=== PATIENT | female | born 1955 | race Caucasian/White ===

== ENCOUNTER 2020-05-25 06:29 | Observation (INO) ==
--- NOTE | 2020-05-19 10:59 | Anesthesiology Consultation ---
Date of Service May 19, 2020 Assessment & Plan (1) Encounter for pre-operative examination: COVID Status: As of 05/12 nurse assessment, patient denies travel to endemic area, known exposure/sick contacts, or symptoms of COVID19. Preoperative COVID19 testing completed on 05/18, results pending. Chart Review Chart Review: Acceptable Risk for Surgery and Patient NOT seen in Pre Admission Testing History Surgery Operation Date: 05/25/20 08:40 Proposed Procedures p Right Breast Lumpectomy with Localization using Keke Bakery Worker Conveyor Line Marker or Needle with Right [place] Lymph Node Biopsy, Possible Right Axillary Dissection - Anthony Mcconnlel MD, FACS Height/Weight Height: 5 ft 7 in Weight: 63.503 kg Allergies Allergy/AdvReac Type Severity Reaction Status Date / Time acetaminophen Allergy Intermediate Hives Verified 05/12/20 13:09 Medications Home Medications Medication Instructions Recorded Confirmed Last Taken buspirone 10 mg tablet 10 mg PO TID PRN #45 tab 04/10/20 05/12/20 Unknown hydroxyzine HCl 25 mg tablet See Rx Instructions PO HS PRN #60 04/10/20 05/12/20 Unknown tab losartan 50 mg tablet 50 mg PO DAILY #90 tab 04/10/20 05/12/20 Unknown sertraline 50 mg tablet See Rx Instructions .ROUTE 04/10/20 05/12/20 Unknown .COMPLEX #30 tab gabapentin 300 mg PO HS 05/12/20 05/12/20 Unknown vitamin B6-vitamin E-magnesium 1 tab PO QAM 05/12/20 05/12/20 Unknown Past Medical History Medical History Abnormal colonoscopy polyp removed Dr Solares Benign age 46 Anxiety Breast cancer Right (CHEMO) History of anemia Hx of peptic ulcer Hypertension Peripheral neuropathy Raynauds disease Past Family History Family History Sister Hypertension Thyroid disorder Father History of pneumonia from pneumonia age 50s aspiration pneumonia Alcoholism Sister Thyroid disorder Mother Sudden , Onset Age: 75 unsure the cause Denies family history of Ovarian cancer Prostate cancer Breast cancer Lung cancer Colorectal cancer Past Surgical History Surgical History H/O oral surgery H/O total hysterectomy History of breast biopsy right History of colonoscopy History of dilatation and curettage History of esophagogastroduodenoscopy (EGD) Nausea and vomiting after administration of anesthetic agent Port-A-Cath in place (11/04/19) Insertion of Mediport Left Internal Jugular Vein Dr. Pastor 11-04-19 Social History Smoking Status: Former smoker tobacco type: cigarettes Do You Dip or Chew Tobacco: No Smoking End Date: 09/2019 Hx Alcohol Use: Yes (quit) Alcohol type: beer alcohol intake frequency: a few times a week Hx Substance Use: No substance use type: does not use Testing Laboratory Results 05/18/20 WBC: 6.28 H/H: 11.5/36.5 PLATELETS: 254 SODIUM: 144 POTASSIUM: 3.4 CHLORIDE: 110 CO2: 28 BUN: 10 CREATININE: 1.02 GLUCOSE: 135 Electrocardiogram Date: 11/04/19 Findings: + NSR @ (71) Nonspecific ST abnormality. Echocardiogram Date: 10/23/19 EF: 65-70% LV Function: normal Valvular Disease: + no significant valvular disease
--- NOTE | 2020-05-25 06:16 | History & Physical Report ---
Date of Service May 25, 2020 Assessment & Plan (1) Breast cancer: Patient with a history of right breast cancer with positive lymph node Status post neoadjuvant chemotherapy She is now for right lumpectomy and sentinel lymph node biopsy with possible axillary dissection She has had marking at the breast center and is for injection in radiology for sentinel lymph node biopsy Operation at [facility] with plan discharge home History of Present Illness Primary Care Provider: Jr Ovalle MD History of right breast cancer with positive axillary lymph node She has undergone neoadjuvant chemotherapy and is now for breast surgery We are planning for breast conserving surgery if possible Allergies Allergy/AdvReac Type Severity Reaction Status Date / Time acetaminophen Allergy Intermediate Hives Verified 05/25/20 06:45 Home Medications Home Medications Medication Instructions Recorded Confirmed Type buspirone 10 mg tablet 10 mg PO TID PRN #45 tab 04/10/20 05/25/20 Rx hydroxyzine HCl 25 mg tablet See Rx Instructions PO HS PRN #60 04/10/20 05/25/20 Rx tab losartan 50 mg tablet 50 mg PO DAILY #90 tab 04/10/20 05/25/20 Rx sertraline 50 mg tablet See Rx Instructions .ROUTE 04/10/20 05/25/20 Rx .COMPLEX #30 tab gabapentin 300 mg PO HS 05/12/20 05/25/20 History vitamin B6-vitamin E-magnesium 1 tab PO QAM 05/12/20 05/25/20 History Past Med/Surg History Medical History Abnormal colonoscopy polyp removed Dr Solares Benign age 46 Anxiety Breast cancer Right (CHEMO) History of anemia Hx of peptic ulcer Hypertension Peripheral neuropathy Raynauds disease Surgical History H/O oral surgery H/O total hysterectomy History of breast biopsy right History of colonoscopy History of dilatation and curettage History of esophagogastroduodenoscopy (EGD) Nausea and vomiting after administration of anesthetic agent Port-A-Cath in place (11/04/19) Insertion of Mediport Left Internal Jugular Vein Dr. Pastor 11-04-19 Family History Sister Hypertension Thyroid disorder Father History of pneumonia from pneumonia age 50s aspiration pneumonia Alcoholism Sister Thyroid disorder Mother Sudden , Onset Age: 75 unsure the cause Denies family history of Ovarian cancer Prostate cancer Breast cancer Lung cancer Colorectal cancer Social History Smoking Status: Former smoker Tobacco Type: Cigarettes Smoking End Date: 09/2019; Second Hand Exposure: Yes (hx); Do You Dip or Chew Tobacco: No; Tobacco Cessation Education Requested by Patient: No Hx Alcohol Use: Yes (quit) Alcohol type: beer Hx Substance Use: No Preferred Language: Telugu Communication Ability: Effective Hearing Ability: Use of Hearing Aid Linesperson Required: No Beliefs That Will Affect Care: None marital status: Current Living Situation: Spouse current occupational status: employed 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 Feels Safe at Home: Yes Safety Concerns: Feels Safe At This Time Childhood Exposure to Second-Hand Smoke: No Seatbelt Use: always Sunscreen Use: Yes Assistive Devices: Glasses and Hearing Aid - Right Assistive Devices Comment: PARTIAL PLATES Review of Systems All systems reviewed & are unremarkable except as noted in HPI & below Physical Exam Constitutional: well developed and well nourished; no acute distress Eyes: + anicteric sclerae Respiratory: normal respiratory effort; no respiratory distress Cardiovascular: Rate/Rhythm: regular rate Gastrointestinal (Abdomen): Percussion/Palpation: abdomen soft Musculoskeletal: Gait: normal gait Skin: no rashes, warm and dry Neurologic: awake Psychiatric: Orientation: alert
[~2020-05-25 06:29] MED LIST: LR 15ML/HR IV SCH; ceFAZolin 2000MG 2,000 MG/15 ML SYR IV SCH
[2020-05-25] MEDS ORDERED: MIDAZOLAM HCL 1 MG/ML 2ML VIAL ONE (07:30)
[2020-05-25] MEDS ORDERED: NEOSTIGMINE METHYLSULFATE 5 MG/5 ML SYR ONE (07:30)
[2020-05-25] MEDS ORDERED: LIDOCAINE HCL 2% 2 ML VIAL/AMP(20MG/ML) INFIL ONE (07:30)
[2020-05-25] MEDS ORDERED: fentaNYL citrate 100 MCG/2 ML VIAL ONE ×2 (07:30→12:11)
[2020-05-25] MEDS ORDERED: ONDANSETRON INJ 2 MG/ML 2 ML VIAL ONE ×2 (07:30→11:55)
[2020-05-25] MEDS ORDERED: DEXAMETHASONE SOD INJ 4 MG/ML VIAL ONE (07:30)
[2020-05-25] MEDS ORDERED: PROPOFOL IV EMULSION 10 MG/ML 20 ML VIAL IV ONE ×2 (07:30→13:10)
[2020-05-25] MEDS ORDERED: ATROPINE SULFATE 0.1 MG/ML 10ML SYR IV PRN (07:59)
[2020-05-25] MEDS ORDERED: ePHEDrine sulfate 50 MG/ML AMP IV PRN (07:59)
[2020-05-25] MEDS ORDERED: ONDANSETRON INJ 2 MG/ML 2 ML VIAL IV PRN ×2 (07:59→14:09)
--- NOTE | 2020-05-25 08:44 | Nuclear Medicine Report ---
LYMPHOSCINTIGRAPHY CLINICAL HISTORY: Right breast cancer. PROCEDURE: Using standard sterile technique, 4 intradermal and one deep injection of 0.5 mCi of Lymph oseek was placed in the right breast. The patient tolerated the procedure well. There were no immedia te complications. The patient was subsequently transported to the surgical suite. No imaging was obta ined at the referring physician's request. IMPRESSION: Injection of 0.5 mCi of Lymphoseek in the right breast. ACT 112: Negative or not required by law. Electronically signed by: Edward Andino M.D. 05/25/2020 8:42 AM
[2020-05-25] MEDS ORDERED: ISOSULFAN BLUE 10 MG/ML VIAL 5 ML ONE (10:12)
[2020-05-25] MEDS ORDERED: BUPIVACAINE 0.5 % 5 MG/1 ML MPF 30ML VIAL ONE (10:13)
[2020-05-25] MEDS ORDERED: METHYLENE BLUE 0.5% 10 ML VIAL ONE (10:31)
[2020-05-25] MEDS ORDERED: ePHEDrine sulfate 50 MG/ML SYR ONE (10:48)
--- NOTE | 2020-05-25 12:14 | Post Operative Brief Note ---
PG Immediate Post Op with CF Date of Surgery May 25, 2020 Pre & Post Diagnosis Operation Date: 05/25/20 09:15 Pre-Op Diagnosis: Infiltrating Ductal Carcinoma Right Breast Post-Op Diagnosis: Infiltrating Ductal Carcinoma Right Breast I identified the patient and participated in the time-out.: Yes Procedure Operation Date: 05/25/20 09:15 Actual Procedures p Right Breast Lumpectomy with Localization using Keke Pantry Chef Marker with Right [place] Lymph Node Biopsy and Right Axillary Dissection(Right) - Anthony Mcconnell MD, FACS Surgeon Anthony Mcconnell MD, FACS Firing Pin Gauger Delta Campos Estimated Blood Loss 20 Findings Consistent with Post-Op Diagnosis Specimens Specimen Description: Frozen #1 Right sentinel lymph node sent out at 1108 Fresh #1 A: Right axillary tissue #2 B:Right breast tissue: long silk lateral, short silk medial, plain superior, methylene posterior/muscle #3 C: additional super tissue- long silk lateral, short silk medial, blue new margin #4 D: additional inferior tissue - long silk lateral, short silk medial, blue new margin Drains Garrison-Talbot Drain (15fr round)
[2020-05-25] MEDS: fentaNYL citrate 100 MCG/2 ML VIAL IV PRN ×2 (12:32→12:37)
--- NOTE | 2020-05-25 13:18 | Operative Report (OR) ---
DATE OF OPERATION: 05/25/2020 NAME OF OPERATION: Right lumpectomy with right sentinel lymph node biopsy and axillary lymph node biopsy. PREOPERATIVE DIAGNOSIS: Right breast cancer with positive lymph node. POSTOPERATIVE DIAGNOSIS: Same. STAFF SURGEON: Anthony Mcconnell MD. LOGISTICS ANALYTICS MANAGER: Corbin Campos PA-C. ANESTHESIA: General. DESCRIPTION OF PROCEDURE: The patient was brought in the operating room and placed on the operating table in supine position. She had undergone injection of the right breast and also SHANTANU Retail Cashier marker placement preoperatively. She did have a large right breast tumor initially with a positive right axillary lymph node, but did have neoadjuvant chemotherapy with good response. At this point, 0.5% plain Marcaine was used to anesthetize all incisions. Incision was made in the right axilla using the SHANTANU Retail Cashier and the Neoprobe. The Neoprobe was used to find the sentinel lymph node, which was sent for frozen section; it was negative. The lymph node which had been biopsied prior and was positive had the SHANTANU Retail Cashier marker within it; it was a separate lymph node. I did take additional axillary tissue which had at least 5-6 lymph nodes within it and it was sent for routine permanent section. During the frozen section, we did perform lumpectomy with a large elliptical incision around the nipple areolar complex because of the patient's tumor was retroareolar and relatively large initially. She did have scar tissue and some scarring of the skin as residual findings. This tissue was taken down to the pectoralis muscle. The initial right breast tissue was marked, long silk lateral, short silk medial, plain suture superior with methylene blue posterior/muscle margin. This was also sent as well as the initial axillary tissue via Faxitron to Dr. Fischer. We did feel additional tissue around this area would be appropriate; therefore, I took additional superior and inferior tissue with it marked long silk lateral, short silk medial, methylene blue new margin. At this point, I did place a Garrison-Talbot drain into the right chest wound and into the axilla and secured using 3-0 nylon suture. Subcutaneous tissue and both incisions closed using 2-0 plain suture and then the skin in the axilla closed using 4-0 nylon suture, in the chest closed using subcuticular 4-0 Monocryl with Steri-Strips. My blacksmith assistant did help with prepping, draping, excision of the breast and axillary tissue and closure of the wounds. I attest to the content of the Intraoperative Record and any orders documented therein. Any exception s are noted below.
--- NOTE | 2020-05-25 13:54 | Anesthesiology Progress Note ---
Date of Service May 25, 2020 Anesthesia Post Procedure Vital Signs Vital Signs: Temp Pulse Pulse Resp BP Pulse Ox 05/25/20 13:00 36.9 C 67 14 144/85 H 100 05/25/20 12:50 69 14 144/85 H 100 05/25/20 12:40 70 14 172/86 H 100 05/25/20 12:30 73 14 172/88 H 99 05/25/20 12:22 36.1 C L 82 18 164/86 H 95 05/25/20 06:55 36.8 C 65 18 169/80 H 98 Pain Intensity Right Breast: Pain Intensity: 4 Transfer of Care Handoff Completed per policy Notes Mental Status: alert / awake / arousable and participated in evaluation Patient Amnestic to Procedure: Yes Nausea / Vomiting: adequately controlled Pain: adequately controlled Airway Patency, RR, SpO2: stable & adequate BP & HR: stable & adequate Hydration State: stable & adequate Anesthetic Complications: no major complications apparent and Pt Satisfied with anesthetic care
[2020-05-25] MEDS ORDERED: PROMETHAZINE HCL 25 MG in SODIUM CHLORIDE 0.9% 50 ML IV PRN (14:09)
[2020-05-25] MEDS ORDERED: HYDROmorphone INJ 0.5 MG/0.5 ML SYR IV PRN (14:09)
[2020-05-25] MEDS ORDERED: hydrOXYzine HCl 25 MG TAB PO PRN (14:09)
[2020-05-25] MEDS ORDERED: PROMETHAZINE HCL 12.5 MG in SODIUM CHLORIDE 0.9% 50 ML IV PRN (14:09)
[2020-05-25] MEDS ORDERED: busPIRone 5 MG TAB PO PRN (14:09)
[2020-05-25] MEDS: SODIUM CHLORIDE 0.9% 1000ML 1,000 ML IV SCH (14:20)
--- NOTE | 2020-05-25 15:15 | Mammography Report ---
MULTIPLE SPECIMENS RIGHT BREAST: 05/25/2020 CLINICAL HISTORY: 65-year-old woman with biopsy proven infiltrative ductal carcinoma and biopsy-prove n metastatic right axillary lymph node diagnosed September 2019. The patient underwent neoadjuvant apt motherapy, preoperative wireless localization with Keke Php Developer, and presents today for definitive surg ical treatment. COMPARISON: Comparison is made to exams dated: 05/14/2020 localization, 05/14/2020 localization, 2019 mammogram, 04/10/2020 ultrasound, 10/02/2019 mammogram, and 10/02/2019 ultrasound biopsy - [facility]. FINDINGS: 2 specimen radiographs were obtained. The first radiograph was performed of the right axil la. It demonstrates the orb-shaped biopsy marker placed after lymph node biopsy, savvy motion picture projectionist apprentice reflect or and at least 4 additional lymph nodes within the tissue specimen. The second specimen radiograph performed of the breast demonstrates the nipple areola complex and a s piculated dense mass with ribbon-shaped biopsy marker and savvy motion picture projectionist apprentice reflector centrally within the tissue. Along the lateral edge of the tissue, 6 o'clock position based on mammography there are grou ped calcifications that extend to the border of the tissue specimen. These could represent DCIS and/ or posttreatment change. This was relayed to the operating surgeon during surgery and additional tis jean paul will be obtained in this location as well. IMPRESSION: SPECIMEN Right breast and axillary tissue specimen, as above. Jazzy Fischer M.D. ay/:05/25/2020 12:02:05 Safety Tech: OR Technologist, [facility]
[2020-05-25] MEDS: oxyCODONE HCL IR 5 MG TAB (IMMEDIATE RELEASE) PO PRN (16:53)
--- NOTE | 2020-05-25 18:13 | Hospitalist Consultation ---
Date of Consultation May 25, 2020 Assessment & Plan (1) Infiltrating ductal carcinoma: s/p lumpectomy 05/25 Monitor for acute blood loss Pain mangement, dvt proph per primary (2) Depression with anxiety: Continue buspirone, sertraline (3) Hypertension: Hypertensive, sbp as high as 190 now trending down. Patient is asymptomatic and reports she did not take her lisinopril this morning. Continue to monitor but will avoid treating for now as pressures are improving somewhat and patient is not having symptoms (4) Peripheral neuropathy: Continue home gabapentin Supervising Physician Co-Signing Physician Notes Patient seen with Radha TSANG. I agree with her exam findings, review of systems, assessment and plan. - Depression and anxiety: mood stable, continue home regimen - HTN: continue lisinopril, low sodium diet History of Present Illness Attending Physician: Anthony Mcconnell MD, [facility] History of Present Illness Ms. Barrientos is feeling well postoperatively. She is having some soreness at the incision site but otherwise has no complaints. Her blood pressure is hypertensive but she denies any visual changes, chest pain or pressure, sob, or headache Allergies Allergy/AdvReac Type Severity Reaction Status Date / Time acetaminophen Allergy Intermediate Hives Verified 05/25/20 06:45 Home Medications Home Medications Medication Instructions Recorded Confirmed Type buspirone 10 mg tablet 10 mg PO TID PRN #45 tab 04/10/20 05/25/20 Rx hydroxyzine HCl 25 mg tablet See Rx Instructions PO HS PRN #60 04/10/20 05/25/20 Rx tab losartan 50 mg tablet 50 mg PO DAILY #90 tab 04/10/20 05/25/20 Rx sertraline 50 mg tablet See Rx Instructions .ROUTE 04/10/20 05/25/20 Rx .COMPLEX #30 tab gabapentin 300 mg PO HS 05/12/20 05/25/20 History vitamin B6-vitamin E-magnesium 1 tab PO QAM 05/12/20 05/25/20 History cephalexin [Keflex] 500 mg PO TID 7 Days #21 cap 05/26/20 Rx oxycodone 5 - 10 mg PO Q6H PRN #30 tab 05/26/20 Rx Patient History Medical History (Updated 05/25/20 @ 18:11 by SHARAN Singh) Abnormal colonoscopy polyp removed Dr Solares Benign age 46 Anxiety Breast cancer Right (CHEMO) History of anemia Hx of peptic ulcer Hypertension Peripheral neuropathy Raynauds disease Surgical History H/O oral surgery H/O total hysterectomy History of breast biopsy right History of colonoscopy History of dilatation and curettage History of esophagogastroduodenoscopy (EGD) Nausea and vomiting after administration of anesthetic agent Port-A-Cath in place (11/04/19) Insertion of Mediport Left Internal Jugular Vein Dr. Pastor 11-04-19 Family History Sister Hypertension Thyroid disorder Father History of pneumonia from pneumonia age 50s aspiration pneumonia Alcoholism Sister Thyroid disorder Mother Sudden , Onset Age: 75 unsure the cause Denies family history of Ovarian cancer Prostate cancer Breast cancer Lung cancer Colorectal cancer Social History Smoking Status: Former smoker Tobacco Type: Cigarettes Smoking End Date: 09/2019; Second Hand Exposure: Yes (hx); Do You Dip or Chew Tobacco: No; Tobacco Cessation Education Requested by Patient: No Hx Alcohol Use: Yes (quit) Alcohol type: beer Hx Substance Use: No Preferred Language: Danish Communication Ability: Effective Hearing Ability: Use of Hearing Aid Filler Shredder Required: No Beliefs That Will Affect Care: None marital status: Current Living Situation: Spouse current occupational status: employed 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 Feels Safe at Home: Yes Safety Concerns: Feels Safe At This Time Childhood Exposure to Second-Hand Smoke: No Seatbelt Use: always Sunscreen Use: Yes Assistive Devices: Glasses Assistive Devices Comment: PARTIAL PLATES Review of Systems Constitutional: no fever, no chills and no body aches Respiratory: no cough and no dyspnea Cardiovascular: no chest pain and no palpitations Gastrointestinal: no abdominal pain, no nausea and no vomiting Genitourinary: no dysuria and no urinary hesitancy Musculoskeletal: no back pain and no joint pain Integumentary: no rash Physical Exam Physical Exam: General: no distress Eyes: normal inspection, PERLL Respiratory: chest non tender, clear to auscultation, normal breath sounds, no respiratory distress, no accessory muscle use Cardiac: regular rate and rhythm, no rub or gallop, no murmur, no edema, no jvd GI/: active bowel sounds, no abd pain or tenderness, soft, non distended Extremities: normal range of motion, normal strength, non tender Neuro/Psych: alert and oriented x 3, normal mood and affect Skin: normal color, dry Results & Data Results & Data ([facility]) Vital Signs (Past 12 Hours) Vital Signs Temp Pulse Pulse Pulse Resp BP Pulse Ox 05/25/20 17:33 74 174/79 H 05/25/20 16:19 36.6 C 77 18 181/77 H 97 05/25/20 15:18 36.5 C 63 16 191/91 H 99 05/25/20 14:14 58 L 15 174/84 H 98 05/25/20 13:48 60 15 167/83 H 98 05/25/20 13:21 36.8 C 70 16 147/74 H 97 05/25/20 13:00 36.9 C 67 14 144/85 H 100 05/25/20 12:50 69 14 144/85 H 100 05/25/20 12:40 70 14 172/86 H 100 05/25/20 12:30 73 14 172/88 H 99 05/25/20 12:22 36.1 C L 82 18 164/86 H 95 05/25/20 06:55 36.8 C 65 18 169/80 H 98 PG Care Time/CCT Total # of Minutes Spent Total Time Spent with Patient: Total time spent is greater than 50% in coordination of care (as documented) at patient's floor/unit and/or counseling patient: Coding Level of Care Code 21021 Inpt Consult Level 4 Diagnoses Infiltrating ductal carcinoma C50.919 Depression with anxiety F41.8 Hypertension I10 Peripheral neuropathy G62.9
[2020-05-25] MEDS: ceFAZolin 1000MG 1,000 MG/7.5 ML SYR IV SCH (19:10)
[2020-05-25] MEDS ORDERED: GABAPENTIN 300 MG CAP PO SCH (21:00)
[2020-05-26] MEDS: ceFAZolin 1000MG 1,000 MG/7.5 ML SYR IV SCH ×2 (03:08→10:00)
[2020-05-26] MEDS: SODIUM CHLORIDE 0.9% 1000ML 1,000 ML IV SCH (07:40)
[2020-05-26] MEDS: oxyCODONE HCL IR 5 MG TAB (IMMEDIATE RELEASE) PO PRN ×2 (07:41→11:00)
--- NOTE | 2020-05-26 08:53 | Discharge Summary (DS) ---
DATE OF DISCHARGE: 05/26/2020 PRINCIPAL DIAGNOSIS: Right breast cancer. PROCEDURES: The patient underwent a right lumpectomy with sentinel lymph node biopsy and axillary dissection. HISTORY OF PRESENT ILLNESS: The patient is a 65-year-old female with biopsy-diagnosed breast cancer of the right breast who underwent neoadjuvant chemotherapy, now for definitive surgery. HOSPITAL COURSE: The patient was brought into the hospital on 05/25/2020 where she underwent right lumpectomy with right sentinel lymph node biopsy and axillary dissection. It was a relatively extensive operation with drain placement. She has done well overnight, felt stable for discharge today to be followed in the surgical clinic within 1 week.
[2020-05-26] MEDS ORDERED: LOSARTAN POTASSIUM 50 MG TAB PO SCH (09:00)
[2020-05-26 09:11] LABS: Hematocrit (blood only) 35.1 % (37-47); Hemoglobin 11.1 g/dL (12.0-16.0); Mean Corpuscular Hemoglobin 28.7 pg (25-34); Mean Corpuscular Hgb Conc 31.6 g/dL (32-36); Mean Corpuscular Volume 90.7 fL (80-100); Mean Platelet Volume 10.2 fL (7.4-10.4); Platelet Count 274 K/uL (130-400); RDW Coefficient of Variation 13.7 % (11.5-14.5); RDW Standard Deviation 45.6 fL (36.4-46.3); Red Blood Count 3.87 M/uL (4.2-5.4); White Blood Count 8.89 K/uL (4.8-10.8)
[2020-05-26 09:12] LABS: BUN Creatinine Ratio 10.6 (10-20); Calcium 9.6 mg/dl (8.5-10.1); Creatinine Clr Calc Pharmacy 54.7 ml/min; Est GFR (African American) 68.1; Est GFR (Non-African American) 58.8; Potassium 4.1 mmol/L (3.5-5.1)
== END 2020-05-26 11:03 | disposition home or self-care (01) ==
LOC: 3E 06:29 → ASU 06:29

== ENCOUNTER 2022-12-26 13:04 | Inpatient (IN) ==
[2022-12-26] MEDS ORDERED: SODIUM CHLORIDE 0.9% 1000ML 1,000 ML IV ONE ×2 (13:34→14:02)
[2022-12-26] MEDS ORDERED: fentaNYL citrate PF 100 MCG/2 ML VIAL IV ONE (13:34)
[2022-12-26] MEDS ORDERED: ONDANSETRON INJ 2 MG/ML 2 ML VIAL IV STA (13:34)
--- NOTE | 2022-12-26 13:37 | Emergency Department Note ---
Impression & Plan Neutropenia, Abdominal pain, Hypotensive episode, MARISA (acute kidney injury), Acute dehydration, Abnormal LFTs ED Provider Note NAME: GARIMA MCCONNELL AGE: 67 SEX: F : 1955 ARRIVES VIA: Walk-In INFORMANT: Patient, the patient's family members ED PROVIDER(S): Ramy Pop DO CHIEF COMPLAINT: Altered mental status HPI: The patient is a 67-year-old female who presented to the emergency department for an evaluation of altered mental status and generalized weakness. The patient is a history of metastatic breast cancer which is spread to her liver. She had a paracentesis recently. The patient has had no vomiting but she had severe decreased p.o. intake according to the family. She has no fever but she is been noted to have low blood pressure and was sent from the primary care physician's office to the emergency department for further evaluation. The patient himself does state that she notices abdominal distention as well as pain. She denies having any recent trauma. She does note some swelling in her legs which is also new for her. The patient denies having any hemoptysis. The patient otherwise has been compliant with her outpatient medications. ROS: See above HPI for pertinent positives & negatives. A total of 10 systems reviewed and were otherwise negative. PAST MEDICAL HISTORY: See Below PAST SURGICAL HISTORY: See Below FAMILY HISTORY: See Below SOCIAL HISTORY: See Below HOME MEDICATIONS: See Below ALLERGIES: See Below VITALS: See Below PHYSICAL EXAMINATION: GENERAL: The patient is awake and frail-appearing. She does respond to verbal commands appropriately. EYES: The conjunctivae are clear. The pupils are round and reactive. EARS, NOSE, MOUTH AND THROAT: The nose is without any evidence of any deformity. Mucous membranes are dry. NECK: The neck is nontender and supple. RESPIRATORY: Diminished breath sounds are noted throughout. CARDIOVASCULAR: Regular rate and rhythm noted there no murmurs rubs or gallops normal S1 normal S2. GASTROINTESTINAL: The abdomen is distended and diffusely tender. There is no specific guarding or rigidity. MUSCULOSKELETAL/EXTREMITIES: There is no evidence of gross deformity full range of motion is noted in the hips and shoulders. SKIN: Skin was cool and dry. There was pedal edema bilaterally. NEUROLOGIC: Patient is awake and oriented to person place and situation. Strength was symmetric but diminished. She does recognize her family members. MEDICAL DECISION MAKING: The patient is a 67-year-old female who presented to the emergency department for an evaluation of weakness. The patient has a history of metastatic breast cancer with metastatic disease to the liver. She has been feeling very ill lately. She has been having decreased p.o. intake. Her family took her to the doctor today and she was found to be hypotensive. She was sent immediately to the emergency department for possible sepsis. The patient was found to have abdominal distention and abdominal pain. She has a history of ascites from the metastatic disease. The patient was treated with IV fluids as well as IV antibiotics to cover for sepsis. She was reevaluated multiple times. She was much more awake. I discussed the patient's condition with her. She was found to have some signs of possible small bowel obstruction on CT of the abdomen and pelvis. She has not been vomiting but she certainly does have abdominal tenderness. I discussed her condition with the on-call [facility]. They have agreed to evaluate the patient in the emergency department for further management and disposition. She was given IV fluids to cover for possible sepsis as well. She did have an elevation in her lactic acid. Triage Nursing notes reviewed. Prior medical records reviewed Vital Signs: reviewed and remarkable for hypotension. Differential diagnosis: Infection, hypoglycemia, electrolyte abnormalities, overdose, toxicologic, cardiac sources, intracerebral event, neurologic, trauma, as well as other pathologies. ER treatment provided: See below Diagnostics interpreted by me: ECG: EKG was obtained in the emergency department. My interpretation is sinus tachycardia at 111 bpm. There was no ectopy. Low voltage was noted throughout. This was compared to a tracing from December 08, 2022. No changes were noted. Cardiac Monitoring: An order was placed for continuous cardiac monitoring. The monitor shows a rate of 112 bpm with sinus tachycardia. Laboratory studies: As stated above and show below. Imaging studies: See below. Radiographic imaging was reviewed by myself Consultation(s): I discussed this case with Dr. Reagan who is on-call for the [facility] group. They will evaluate the patient in the emergency department. ED COURSE: Procedures: none Critical Care: I have personally spent greater than 40 minutes of critical care time in the direct management of this patient. This includes bedside care, interpretation of diagnostic studies, and testing, discussion with consultants, patient, and family members, and other required patient management activities. This 40 minutes is in excess of all separately billable procedures. Past Med/Surg History Medical History Breast cancer CKD (chronic kidney disease) Depression with anxiety Diverticular disease History of anemia Hx of colonic polyp Polyp removed Dr. Beck Cespedes age 46 Hx of peptic ulcer Hypertension Infiltrating ductal carcinoma of right breast Peripheral neuropathy Raynauds disease Surgical History H/O lumpectomy Right lumpectomy with right SNL biopsy and axillary lymph node biopsy Per pt no limb restrictions H/O oral surgery root canals H/O total hysterectomy History of abdominal surgery 04/2021 @ [facility] for bowel reconstruction with ostomy placement History of breast biopsy right History of colonoscopy History of dilatation and curettage History of esophagogastroduodenoscopy (EGD) History of removal of Port-a-Cath (03/26/21) Access Port Removal Dr. Pastor 03-26-2021 History of reversal of ileostomy 05/2021 @ [facility] Nausea and vomiting after administration of anesthetic agent Port-A-Cath in place (11/04/19) Insertion of Mediport Left Internal Jugular Vein Dr. Pastor 11-04-19 Family History Sister Hypertension Thyroid disorder Father Alcoholism History of pneumonia from pneumonia age 50s aspiration pneumonia Sister Thyroid disorder Mother Sudden , Onset Age: 75 unsure the cause Other No family history of adverse response to anesthesia Denies family history of Ovarian cancer Prostate cancer Breast cancer Lung cancer Colorectal cancer Social History Smoking Status: Never smoker Tobacco Type: Cigarettes Second Hand Exposure: No; Do You Dip or Chew Tobacco: No; Hx Alcohol Use: No Hx Substance Use: No Preferred Language: Swedish Communication Ability: Effective Visual Impairment: No Limitations Hearing Ability: Use of Hearing Aid Professor Of Management Required: No Beliefs That Will Affect Care: None marital status: Current Living Situation: Spouse current occupational status: employed 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 Feels Safe at Home: Yes Childhood Exposure to Second-Hand Smoke: No Diet: regular Seatbelt Use: always Sunscreen Use: Yes Assistive Devices: Glasses, Hearing Aid - Bilateral and Other Allergies Allergies Allergy/AdvReac Type Severity Reaction Status Date / Time acetaminophen Allergy Intermediate Hives Verified 12/26/22 12:09 sertraline Allergy Intermediate groggy Verified 12/26/22 12:09 Home Meds Home Medications Medication Instructions Recorded Confirmed multivitamin 1 tab PO QAM 12/27/21 12/26/22 furosemide 20 mg tablet (Lasix) 20 mg PO QAM 12/09/22 12/26/22 tramadol 50 mg tablet 50 mg PO BID PRN 12/26/22 12/26/22 zolpidem 5 mg tablet (Ambien) 5 mg PO 12/26/22 12/26/22 Previous Rx's Medication Instructions Recorded lorazepam 0.5 mg tablet (Ativan) 0.5 mg PO DAILY PRN anxiety before 12/27/21 doctors appointments #20 tabs olanzapine 2.5 mg tablet See Rx Instructions PO .COMPLEX 12/09/22 #30 tabs ondansetron HCl 8 mg tablet 8 mg PO Q8H PRN nausea and 12/09/22 vomiting #90 tabs prochlorperazine maleate 10 mg 10 mg PO QID PRN nausea and 12/09/22 tablet vomiting #90 tabs losartan 50 mg tablet 50 mg PO HS #90 tabs 12/23/22 Results & Data (ED) Vital Signs Vital Signs - 24 hr 12/26/22 13:04 12/26/22 13:42 12/26/22 13:46 Temperature 35.6 C L Temperature Source Temporal Artery Scan Pulse Rate 111 H 107 H Pulse Rate from SpO2 Sensor Respiratory Rate 18 Blood Pressure 79/52 L Blood Pressure Mean 61 Pulse Oximetry 99 Oxygen Delivery Method Room Air Sepsis Recent Fever Within 48 Hours No Sepsis New/Unexplained Change in Mental Status N/A Sepsis Action Taken by Nursing Physician Notified 12/26/22 13:47 12/26/22 13:49 12/26/22 13:45 Temperature 36.5 C Temperature Source Oral Pulse Rate 106 H Pulse Rate from SpO2 Sensor Respiratory Rate 23 Blood Pressure Blood Pressure Mean Pulse Oximetry 100 Oxygen Delivery Method Room Air Sepsis Recent Fever Within 48 Hours Sepsis New/Unexplained Change in Mental Status Sepsis Action Taken by Nursing 12/26/22 13:48 12/26/22 13:48 12/26/22 14:04 Temperature Temperature Source Pulse Rate 105 H 105 H Pulse Rate from SpO2 Sensor Respiratory Rate 21 30 H Blood Pressure 100/46 L Blood Pressure Mean 64 Pulse Oximetry Oxygen Delivery Method Sepsis Recent Fever Within 48 Hours Sepsis New/Unexplained Change in Mental Status Sepsis Action Taken by Nursing 12/26/22 14:05 12/26/22 14:05 12/26/22 14:15 Temperature Temperature Source Pulse Rate 107 H Pulse Rate from SpO2 Sensor 107 H Respiratory Rate 21 Blood Pressure 116/60 119/74 Blood Pressure Mean 78 89 Pulse Oximetry 100 Oxygen Delivery Method Room Air Sepsis Recent Fever Within 48 Hours Sepsis New/Unexplained Change in Mental Status Sepsis Action Taken by Nursing 12/26/22 14:15 12/26/22 14:30 12/26/22 14:30 Temperature Temperature Source Pulse Rate 107 H 107 H Pulse Rate from SpO2 Sensor 108 H 108 H Respiratory Rate 25 H 24 Blood Pressure 124/69 Blood Pressure Mean 87 Pulse Oximetry 100 100 Oxygen Delivery Method Room Air Room Air Sepsis Recent Fever Within 48 Hours Sepsis New/Unexplained Change in Mental Status Sepsis Action Taken by Nursing 12/26/22 14:45 12/26/22 14:45 12/26/22 15:00 Temperature Temperature Source Pulse Rate 109 H Pulse Rate from SpO2 Sensor 110 H Respiratory Rate 24 Blood Pressure 121/69 101/57 L Blood Pressure Mean 86 71 Pulse Oximetry 100 Oxygen Delivery Method Room Air Sepsis Recent Fever Within 48 Hours Sepsis New/Unexplained Change in Mental Status Sepsis Action Taken by Nursing 12/26/22 15:00 12/26/22 15:15 12/26/22 15:15 Temperature Temperature Source Pulse Rate 108 H 112 H Pulse Rate from SpO2 Sensor 110 H 111 H Respiratory Rate 18 22 Blood Pressure 96/51 L Blood Pressure Mean 66 Pulse Oximetry 100 100 Oxygen Delivery Method Room Air Room Air Sepsis Recent Fever Within 48 Hours Sepsis New/Unexplained Change in Mental Status Sepsis Action Taken by Nursing 12/26/22 15:37 12/26/22 15:45 Temperature Temperature Source Pulse Rate 112 H Pulse Rate from SpO2 Sensor 112 H 112 H Respiratory Rate 18 Blood Pressure Blood Pressure Mean Pulse Oximetry 100 100 Oxygen Delivery Method Room Air Room Air Sepsis Recent Fever Within 48 Hours Sepsis New/Unexplained Change in Mental Status Sepsis Action Taken by [facility] Medications Current Medication List: was personally reviewed by me Laboratory Data Attestation: I reviewed the patient's lab results. 12/26/22 13:39 12/26/22 13:39 Lab Results 05/12/26/22 12/26/22 Range/Units 13:39 13:39 13:39 WBC 0.90 L* (4.8-10.8) K/ul RBC 3.92 L (4.20-5.40) M/uL Hgb 11.7 L (12.0-16.0) g/dl Hct 32.0 L (37.0-47.0) % MCV 81.6 (80.0-100.0) fL MCH 29.8 (25.0-34.0) pg MCHC 36.6 H (32.0-36.0) g/dL RDW Std Deviation 50.8 H (36.4-46.3) fL RDW Coeff of Moon 22.7 H (11.5-14.5) % Plt Count 240 (130-400) K/uL MPV 10.8 (9.4-12.4) fL Immature Gran % (Auto) 1.1 % Neut % (Auto) 22.2 % Lymph % (Auto) 68.9 % Pershing % (Auto) 5.6 % Eos % (Auto) 1.1 % Baso % (Auto) 1.1 % Neut # (Auto) 0.20 L* (1.40-6.50) K/uL Lymph # (Auto) 0.62 L (1.2-3.4) K/uL Pershing # (Auto) 0.05 L (0.11-0.59) K/uL Eos # (Auto) 0.01 (0-0.50) K/uL Baso # (Auto) 0.01 (0-0.2) K/uL Immature Gran # (Auto) 0.01 (0.01-0.20) K/uL PT 12.6 H (9.0-12.0) Seconds INR 1.2 H (0.9-1.1) APTT 30.1 (21.0-31.0) Seconds PTT Ratio 1.1 VBG pH (7.36-7.41) VBG pCO2 (38-50) mmHg VBG pO2 mmHg VBG HCO3 mmol/L VBG O2 Saturation % VBG Base Excess mEq/L Sodium 133 L (136-145) mmol/L Potassium 4.9 (3.5-5.1) mmol/L Chloride 101 (98-107) mmol/L Carbon Dioxide 17 L (21-32) mmol/L Anion Gap 15 H (3-11) BUN 73 H (6-23) mg/dl Creatinine 3.01 H (0.6-1.2) mg/dl Est Cr Clr Drug Dosing 17.9 ml/min Est GFR ( Amer) 17.9 ml/min Est GFR (Non-Af Amer) 15.5 ml/min BUN/Creatinine Ratio 24.3 H (10-20) Glucose 99 (70-99(Fasting)) mg/dl Lactate (0.4-2.0) mmol/L Calcium 8.6 (8.6-10.3) mg/dl Magnesium 2.4 (1.7-2.4) mg/dl Total Bilirubin 5.3 H (0.2-1.0) mg/dl Direct Bilirubin 2.9 H (0-0.2) mg/dl AST 372 H (13-39) U/L ALT 83 H (7-52) U/L Alkaline Phosphatase 615 H (34-104) U/L Troponin I High Sens 22.8 H (0-14) pg/ml C-Reactive Protein 27.18 H (0-0.5) mg/dl Total Protein 5.9 L (6.0-8.3) gm/dl Albumin 2.4 L (3.4-5.0) gm/dl Procalcitonin (0-0.5) ng/ml SARS-CoV-2 (PCR) (Negative) Influenza Type A (PCR) (Neg) Influenza Type B (PCR) (Neg) RSV (RT-PCR) (Neg) 12/26/22 12/26/22 12/26/22 Range/Units 13:39 13:39 13:39 WBC (4.8-10.8) K/ul RBC (4.20-5.40) M/uL Hgb (12.0-16.0) g/dl Hct (37.0-47.0) % MCV (80.0-100.0) fL MCH (25.0-34.0) pg MCHC (32.0-36.0) g/dL RDW Std Deviation (36.4-46.3) fL RDW Coeff of Moon (11.5-14.5) % Plt Count (130-400) K/uL MPV (9.4-12.4) fL Immature Gran % (Auto) % Neut % (Auto) % Lymph % (Auto) % Pershing % (Auto) % Eos % (Auto) % Baso % (Auto) % Neut # (Auto) (1.40-6.50) K/uL Lymph # (Auto) (1.2-3.4) K/uL Pershing # (Auto) (0.11-0.59) K/uL Eos # (Auto) (0-0.50) K/uL Baso # (Auto) (0-0.2) K/uL Immature Gran # (Auto) (0.01-0.20) K/uL PT (9.0-12.0) Seconds INR (0.9-1.1) APTT (21.0-31.0) Seconds PTT Ratio VBG pH 7.35 L (7.36-7.41) VBG pCO2 28 L (38-50) mmHg VBG pO2 32 mmHg VBG HCO3 16 mmol/L VBG O2 Saturation < 60.0 % VBG Base Excess -8.6 mEq/L Sodium (136-145) mmol/L Potassium (3.5-5.1) mmol/L Chloride (98-107) mmol/L Carbon Dioxide (21-32) mmol/L Anion Gap (3-11) BUN (6-23) mg/dl Creatinine (0.6-1.2) mg/dl Est Cr Clr Drug Dosing ml/min Est GFR ( Amer) ml/min Est GFR (Non-Af Amer) ml/min BUN/Creatinine Ratio (10-20) Glucose (70-99(Fasting)) mg/dl Lactate 4.8 H* (0.4-2.0) mmol/L Calcium (8.6-10.3) mg/dl Magnesium (1.7-2.4) mg/dl Total Bilirubin (0.2-1.0) mg/dl Direct Bilirubin (0-0.2) mg/dl AST (13-39) U/L ALT (7-52) U/L Alkaline Phosphatase (34-104) U/L Troponin I High Sens (0-14) pg/ml C-Reactive Protein (0-0.5) mg/dl Total Protein (6.0-8.3) gm/dl Albumin (3.4-5.0) gm/dl Procalcitonin 12.34 H (0-0.5) ng/ml SARS-CoV-2 (PCR) (Negative) Influenza Type A (PCR) (Neg) Influenza Type B (PCR) (Neg) RSV (RT-PCR) (Neg) 12/26/22 Range/Units 14:17 WBC (4.8-10.8) K/ul RBC (4.20-5.40) M/uL Hgb (12.0-16.0) g/dl Hct (37.0-47.0) % MCV (80.0-100.0) fL MCH (25.0-34.0) pg MCHC (32.0-36.0) g/dL RDW Std Deviation (36.4-46.3) fL RDW Coeff of Moon (11.5-14.5) % Plt Count (130-400) K/uL MPV (9.4-12.4) fL Immature Gran % (Auto) % Neut % (Auto) % Lymph % (Auto) % Pershing % (Auto) % Eos % (Auto) % Baso % (Auto) % Neut # (Auto) (1.40-6.50) K/uL Lymph # (Auto) (1.2-3.4) K/uL Pershing # (Auto) (0.11-0.59) K/uL Eos # (Auto) (0-0.50) K/uL Baso # (Auto) (0-0.2) K/uL Immature Gran # (Auto) (0.01-0.20) K/uL PT (9.0-12.0) Seconds INR (0.9-1.1) APTT (21.0-31.0) Seconds PTT Ratio VBG pH (7.36-7.41) VBG pCO2 (38-50) mmHg VBG pO2 mmHg VBG HCO3 mmol/L VBG O2 Saturation % VBG Base Excess mEq/L Sodium (136-145) mmol/L Potassium (3.5-5.1) mmol/L Chloride (98-107) mmol/L Carbon Dioxide (21-32) mmol/L Anion Gap (3-11) BUN (6-23) mg/dl Creatinine (0.6-1.2) mg/dl Est Cr Clr Drug Dosing ml/min Est GFR ( Amer) ml/min Est GFR (Non-Af Amer) ml/min BUN/Creatinine Ratio (10-20) Glucose (70-99(Fasting)) mg/dl Lactate (0.4-2.0) mmol/L Calcium (8.6-10.3) mg/dl Magnesium (1.7-2.4) mg/dl Total Bilirubin (0.2-1.0) mg/dl Direct Bilirubin (0-0.2) mg/dl AST (13-39) U/L ALT (7-52) U/L Alkaline Phosphatase (34-104) U/L Troponin I High Sens (0-14) pg/ml C-Reactive Protein (0-0.5) mg/dl Total Protein (6.0-8.3) gm/dl Albumin (3.4-5.0) gm/dl Procalcitonin (0-0.5) ng/ml SARS-CoV-2 (PCR) NEGATIVE (Negative) Influenza Type A (PCR) Negative (Neg) Influenza Type B (PCR) Negative (Neg) RSV (RT-PCR) Negative (Neg) Administered Medications Discontinued Medications Fentanyl Citrate (Fentanyl Citrate Pf 100 Mcg/2 Ml Vial) 25 mcg IV NOW ONE Stop: 12/26/22 13:35 Last Admin: 12/26/22 13:43 Dose: 25 mcg Documented By: GABE Sodium Chloride (Nss 1000ml) 1,000 mls @ 999 mls/hr IV .Q1H1M ONE Stop: 12/26/22 14:34 Last Infusion: 12/26/22 14:43 Dose: 0 mls/hr Documented By: Admin: 12/26/22 13:42 Dose: 999 mls/hr Documented By: GABE Sodium Chloride (Nss 1000ml) 1,000 mls @ 999 mls/hr IV .Q1H1M ONE Stop: 12/26/22 15:02 Last Infusion: 12/26/22 15:10 Dose: 0 mls/hr Documented By: Admin: 12/26/22 14:11 Dose: 999 mls/hr Documented By: GABE Cefepime HCl (Maxipime) 2,000 mg in 20 mls @ 5 mls/min IV NOW STA; Protocol Stop: 12/26/22 14:39 Last Admin: 12/26/22 14:44 Dose: 5 mls/min Documented By: GABE Sodium Chloride (Nss) 500 mls @ 999 mls/hr IV .Q31M ONE Stop: 12/26/22 15:53 Last Admin: 12/26/22 15:45 Dose: 999 mls/hr Documented By: GABE Morphine Sulfate (Morphine Sulfate 4 Mg/Ml 1 Ml Carp\Vial) 4 mg IV NOW STA Stop: 12/26/22 14:37 Last Admin: 12/26/22 14:43 Dose: 4 mg Documented By: GABE Ondansetron HCl (Ondansetron Inj 2 Mg/Ml 2 Ml Vial) 4 mg IV NOW STA Stop: 12/26/22 13:35 Last Admin: 12/26/22 13:43 Dose: 4 mg Documented By: GABE Imaging Data Attestation: I personally reviewed and interpreted this imaging study as follows: My Impression: 1 view chest x-ray was obtained in the emergency department. My interpretation is no free air, no definite infiltrate, final report below. Radiologist's Impression: Chest X-Ray 12/26/22 13:35 SINGLE VIEW CHEST CLINICAL HISTORY: Sepsis FINDINGS: An AP, portable, semierect chest radiograph is compared to study dated 11/04/2019 and correlated with chest CT dated 04/27/2020. The examination is degr aded by portable technique and apical lordotic positioning. The cardiomediastinal silhouette is unremarkable. Chronic interstitial thickening is similar to previous. There is mild elevation of the right hemidiaphragm and bibasilar atelectasis. No airspace consolidation or large pleural effusion is i dentified. No pneumothorax is seen. The skeletal structures are osteopenic. The bony thorax is grossly intact. IMPRESSION: No active disease in the chest. ACT 112: Negative or not required by law. Electronically signed by: Moi Cronin M.D. 12/26/2022 2:14 PM Abdomen/Pelvis CT 12/26/22 13:37 CT SCAN OF THE ABDOMEN AND PELVIS WITHOUT IV CONTRAST CLINICAL HISTORY: Generalized abdominal pain. History of metastatic disease. COMPARISON STUDY: Abdominal CT dated 01/29/2021. PET CT dated 12/07/2022. TECHNIQUE: CT scan of the abdomen and pelvis is performed from the lung bases to the proximal femora. Images are reviewed in the axial, sagittal, and coronal planes. IV contrast was not administered for this examination. Note that the examination was performed in suboptimal fashion without oral and IV contrast. There is also streak artifact from the arms which could not be elevated above the abdomen. A dose lowering technique was utilized adhering to the principles of ALARA. FINDINGS: Lung bases: The heart is mildly enlarged noting trace pericardial effusion. The coronary arteries are densely calcified. The lung bases are clear noting bibasilar scarring/atelectasis. There is a moderate hiatal hernia which also contains ascitic fluid. Liver: The unenhanced liver is enlarged an heterogeneous, measuring 22.5 cm in length. The liver is infiltrated by diffuse/multifocal metastatic disease. This is similar to before 2623 examination. There is no intrahepatic biliary ductal dilatation. Gallbladder: Unremarkable. Spleen: Normal in size and attenuation. There are calcified splenic granulomas. Pancreas: The unenhanced pancreas is grossly unremarkable. Adrenal glands: Unremarkable. Kidneys: The unenhanced kidneys demonstrate mild cortical atrophy and are without hydronephrosis. There are no renal calculi identified. There is no evidence of contour deforming renal mass lesion. Abdominal vasculature: The abdominal aorta is normal in course and caliber noting advanced atherosclerotic calcification. Bowel: There is postoperative change from sigmoid colon resection with colocolonic anastomosis. A small bowel anastomosis is seen in the right lower quadrant. There are distended and fecalized loops of small bowel above anastomosis which are mildly thick walled and measure up to 2.8 cm diameter (axial image #322). The small bowel below the anastomosis is decompressed, and a partial obstruction is not excluded. There is mild colonic diverticulosis wi thout CT evidence of acute diverticulitis. Mild wall thickening suggested throughout the colon. The appendix is well-visualized and normal. Peritoneum: There is a moderate volume of abdominopelvic ascites. No intraperitoneal free air is seen. Lymphadenopathy: None. Pelvic viscera: The bladder is decompressed and grossly unremarkable. The uterus is surgically absent. No adnexal lesion is seen. Skeletal structures: The skeletal structures are heterogeneously osteopenic. 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 Represent a lesions are seen in the body of T11 on image #103, the body of L5 on image #259, and the left iliac wing on image #259, and in the medial right ilium on image #277. IMPRESSION: 1. There are distended and thick-walled loops of fecalized small bowel in the pelvis. An apparent transition point is seen at a small bowel anastomosis in the right midabdomen, and the distal small bowel is decompressed. Differential considerations include a nonspecific enteritis and/or a partial small bowel obstruction. A small bowel obstruction is favored and clinical correlation will be essential. 2. The liver is enlarged and infiltrated by diffuse hepatic metastatic disease. This is similar in appearance date 12/07/2022 PET examination. 3. 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 4. Moderate volume of abdominopelvic ascites. This has increased from previous. 5. There is mild wall thickening and edema suggested throughout the colon. This could be due to hepatic dysfunction/fluid overload. Correlate clinically for evidence of a nonspecific colitis. 6. Additional findings as above. ACT 112: Negative or not required by law. Electronically signed by: Moi Cronin M.D. 12/26/2022 2:[address] 12/26/22 13:37 CT SCAN OF THE BRAIN WITHOUT IV CONTRAST CLINICAL HISTORY: Headache. Weakness. COMPARISON STUDY: No priors. TECHNIQUE: Unenhanced axial CT scan of the brain is performed from the vertex to the skull base. A dose lowering technique was utilized adhering to the principles of ALARA. CT DOSE: 1576.03 mGy.cm FINDINGS: Brain parenchyma: There is age-related involutional change noting mild subcortical and periventricular microangiopathic disease. There is no hemorrhage, mass effect, or evidence of acute territorial ischemia by CT criteria. Ahn-white matter differentiation is preserved. No extra-axial fluid collection is seen. Ventricles, sulci, cisterns: Prominent secondary to involutional change. Intracranial vasculature: There is atherosclerotic calcification of the cavernous carotid arteries. Calvarium: Unremarkable. Sinuses and mastoids: The visualized paranasal sinuses are clear. The mastoid air cells are well pneumatized. Orbits: The bony orbits are grossly intact. IMPRESSION: There is no hemorrhage, mass effect, or evidence of acute territorial ischemia by CT criteria. ACT 112: Negative or not required by law. Electronically signed by: Moi Cronin M.D. 12/26/2022 2:10 PM Discharge Plan Visit Data Chief Complaint: Illness Stated Complaint: NOT EATING OR DRINKING ED Provider: Ramy Pop Discharge Problem: Neutropenia, Abdominal pain, Hypotensive episode, MARISA (acute kidney injury), Acute dehydration, Abnormal LFTs Patient Disposition: Being Evaluated by Hospitalist Forms Stand Alone Forms: My [facility] Prescriptions Prescriptions: No Action losartan 50 mg tablet 50 mg PO HS Qty: 90 0RF zolpidem [Ambien] 5 mg tablet 5 mg PO tramadol 50 mg tablet 50 mg PO BID PRN ondansetron HCl 8 mg tablet 8 mg PO Q8H PRN (Reason: nausea and vomiting) Qty: 90 0RF olanzapine 2.5 mg tablet See Rx Instructions PO .COMPLEX Qty: 30 2RF Rx Instructions: 2.5mg daily x 4 days at beginning of chemo orally; prochlorperazine maleate 10 mg tablet 10 mg PO QID PRN (Reason: nausea and vomiting) Qty: 90 0RF furosemide [Lasix] 20 mg tablet 20 mg PO QAM multivitamin Tablet 1 tab PO QAM lorazepam [Ativan] 0.5 mg tablet 0.5 mg PO DAILY PRN (Reason: anxiety before doctors appointments) Qty: 20 2RF Referrals Referrals: Jr Ovalle MD [Primary Care Provider] -
[2022-12-26 13:55] LABS: Base Excess VBG -8.6 mEq/L; HCO3 VBG 16 mmol/L; Oxygen Saturation VBG < 60.0 %; PCO2 VBG 28 mmHg (38-50); PO2 VBG 32 mmHg; pH VBG 7.35 (7.36-7.41)
--- NOTE | 2022-12-26 14:11 | CT Scan Report ---
CT SCAN OF THE BRAIN WITHOUT IV CONTRAST CLINICAL HISTORY: Headache. Weakness. COMPARISON STUDY: No priors. TECHNIQUE: Unenhanced axial CT scan of the brain is performed from the vertex to the skull base. A do se lowering technique was utilized adhering to the principles of ALARA. CT DOSE: 1576.03 mGy.cm FINDINGS: Brain parenchyma: There is age-related involutional change noting mild subcortical and periventricula r microangiopathic disease. There is no hemorrhage, mass effect, or evidence of acute territorial isc hemia by CT criteria. Ahn-white matter differentiation is preserved. No extra-axial fluid collection is seen. Ventricles, sulci, cisterns: Prominent secondary to involutional change. Intracranial vasculature: There is atherosclerotic calcification of the cavernous carotid arteries. Calvarium: Unremarkable. Sinuses and mastoids: The visualized paranasal sinuses are clear. The mastoid air cells are well pneu matized. Orbits: The bony orbits are grossly intact. IMPRESSION: There is no hemorrhage, mass effect, or evidence of acute territorial ischemia by CT dianna johnson. ACT 112: Negative or not required by law. Electronically signed by: Moi Cronin M.D. 12/26/2022 2:10 PM
--- NOTE | 2022-12-26 14:16 | XRay Report ---
SINGLE VIEW CHEST CLINICAL HISTORY: Sepsis FINDINGS: An AP, portable, semierect chest radiograph is compared to study dated 11/04/2019 and correl ated with chest CT dated 04/27/2020. The examination is degraded by portable technique and apical lord otic positioning. The cardiomediastinal silhouette is unremarkable. Chronic interstitial thickening i s similar to previous. There is mild elevation of the right hemidiaphragm and bibasilar atelectasis. No airspace consolidation or large pleural effusion is identified. No pneumothorax is seen. The skele duke structures are osteopenic. The bony thorax is grossly intact. IMPRESSION: No active disease in the chest. ACT 112: Negative or not required by law. Electronically signed by: Moi Cronin M.D. 12/26/2022 2:14 PM
[2022-12-26] MEDS ORDERED: CEFEPIME 2,000 MG/20 ML VIAL IV STA (14:36)
[2022-12-26] MEDS ORDERED: MoRPHine SULFATE 4 MG/ML 1 ML CARP\\VIAL IV STA (14:36)
[2022-12-26 14:37] LABS: Hemoglobin 11.7 g/dl (12.0-16.0); Mean Corpuscular Hemoglobin 29.8 pg (25.0-34.0); Mean Corpuscular Hgb Conc 36.6 g/dL (32.0-36.0); Mean Corpuscular Volume 81.6 fL (80.0-100.0); Mean Platelet Volume 10.8 fL (9.4-12.4); Platelet Count 240 K/uL (130-400); RDW Coefficient of Variation 22.7 % (11.5-14.5); RDW Standard Deviation 50.8 fL (36.4-46.3); Red Blood Count 3.92 M/uL (4.20-5.40)
[2022-12-26 14:42] LABS: Albumin Level 2.4 gm/dl (3.4-5.0); BUN Creatinine Ratio 24.3 (10-20); Bilirubin Direct 2.9 mg/dl (0-0.2); Bilirubin,Total 5.3 mg/dl (0.2-1.0); C Reactive Protein 27.18 mg/dl (0-0.5); Calcium 8.6 mg/dl (8.6-10.3); Creatinine Clr Calc Pharmacy 17.9 ml/min; Est GFR (African American) 17.9 ml/min; Est GFR (Non-African American) 15.5 ml/min; Magnesium 2.4 mg/dl (1.7-2.4); Potassium 4.9 mmol/L (3.5-5.1); Total Protein 5.9 gm/dl (6.0-8.3)
[2022-12-26 14:48] LABS: Troponin I High Sensitivity 22.8 pg/ml (0-14)
--- NOTE | 2022-12-26 14:50 | CT Scan Report ---
CT SCAN OF THE ABDOMEN AND PELVIS WITHOUT IV CONTRAST CLINICAL HISTORY: Generalized abdominal pain. History of metastatic disease. COMPARISON STUDY: Abdominal CT dated 01/29/2021. PET CT dated 12/07/2022. TECHNIQUE: CT scan of the abdomen and pelvis is performed from the lung bases to the proximal femora. Images are reviewed in the axial, sagittal, and coronal planes. IV contrast was not administered for this examination. Note that the examination was performed in suboptimal fashion without oral and IV contrast. There is also streak artifact from the arms which could not be elevated above the abdomen. A dose lowering technique was utilized adhering to the principles of ALARA. FINDINGS: Lung bases: The heart is mildly enlarged noting trace pericardial effusion. The coronary arteries are densely calcified. The lung bases are clear noting bibasilar scarring/atelectasis. There is a modera te hiatal hernia which also contains ascitic fluid. Liver: The unenhanced liver is enlarged an heterogeneous, measuring 22.5 cm in length. The liver is i nfiltrated by diffuse/multifocal metastatic disease. This is similar to before 2623 examination. Ther e is no intrahepatic biliary ductal dilatation. Gallbladder: Unremarkable. Spleen: Normal in size and attenuation. There are calcified splenic granulomas. Pancreas: The unenhanced pancreas is grossly unremarkable. Adrenal glands: Unremarkable. Kidneys: The unenhanced kidneys demonstrate mild cortical atrophy and are without hydronephrosis. The re are no renal calculi identified. There is no evidence of contour deforming renal mass lesion. Abdominal vasculature: The abdominal aorta is normal in course and caliber noting advanced atheroscle rotic calcification. Bowel: There is postoperative change from sigmoid colon resection with colocolonic anastomosis. A sma ll bowel anastomosis is seen in the right lower quadrant. There are distended and fecalized loops of small bowel above anastomosis which are mildly thick walled and measure up to 2.8 cm diameter (axial image #322). The small bowel below the anastomosis is decompressed, and a partial obstruction is not excluded. There is mild colonic diverticulosis without CT evidence of acute diverticulitis. Mild wall thickening suggested throughout the colon. The appendix is well-visualized and normal. Peritoneum: There is a moderate volume of abdominopelvic ascites. No intraperitoneal free air is seen . Lymphadenopathy: None. Pelvic viscera: The bladder is decompressed and grossly unremarkable. The uterus is surgically absent . No adnexal lesion is seen. Skeletal structures: The skeletal structures are heterogeneously osteopenic. There is evidence of mul tifocal osteolytic metastatic disease. Represent a lesions are seen in the body of T11 on image #103, the body of L5 on image #259, and the left iliac wing on image #259, and in the medial right ilium o n image #277. IMPRESSION: 1. There are distended and thick-walled loops of fecalized small bowel in the pelvis. An apparent tra nsition point is seen at a small bowel anastomosis in the right midabdomen, and the distal small kristi l is decompressed. Differential considerations include a nonspecific enteritis and/or a partial small bowel obstruction. A small bowel obstruction is favored and clinical correlation will be essential. 2. The liver is enlarged and infiltrated by diffuse hepatic metastatic disease. This is similar in ap pearance date 12/07/2022 PET examination. 3. 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 4. Moderate volume of abdominopelvic ascites. This has increased from previous. 5. There is mild wall thickening and edema suggested throughout the colon. This could be due to hepat ic dysfunction/fluid overload. Correlate clinically for evidence of a nonspecific colitis. 6. Additional findings as above. ACT 112: Negative or not required by law. Electronically signed by: Moi Cronin M.D. 12/26/2022 2:49 PM
[2022-12-26 14:59] LABS: INR 1.2 (0.9-1.1); Partial Thromboplastin Ratio 1.1; Partial Thromboplastin Time 30.1 Seconds (21.0-31.0); Prothrombin Time 12.6 Seconds (9.0-12.0)
[2022-12-26] MEDS ORDERED: SODIUM CHLORIDE 0.9% 500 ML IV ONE (15:23)
[2022-12-26 15:25] LABS: Basophils # (auto) 0.01 K/uL (0-0.2); Basophils % (auto) 1.1 %; Eosinophils # (auto) 0.01 K/uL (0-0.50); Eosinophils % (auto) 1.1 %; Immature Granulocytes # (auto) 0.01 K/uL (0.01-0.20); Immature Granulocytes % (auto) 1.1 %; Lymphocytes # (auto) 0.62 K/uL (1.2-3.4); Lymphocytes % (auto) 68.9 %; Monocytes # (auto) 0.05 K/uL (0.11-0.59); Monocytes % (auto) 5.6 %; Neutrophils % (auto) 22.2 %
[2022-12-26 15:36] LABS: Influenza A virus by PCR Negative (Neg); Influenza B virus by PCR Negative (Neg); RSV by PCR Negative (Neg); SARS CoV2 RNA(COVID-19) Ceph NEGATIVE (Negative)
[2022-12-26 16:14] LABS: Appearance Urine Cloudy (Clear); Bacteria Urine Automated Negative (Negative); Blood Urine Negative (Negative); Color Urine Dark Yellow; Epithelial Cell Urine Auto >30 /lpf (0-5); Glucose Urine UA Negative (Negative); Ketones Urine Trace (Negative); Leukocyte Esterase Urine Trace (Negative); Nitrite Urine Negative (Negative); Protein Urine Negative (Negative); Specific Gravity Urine 1.013 (1.000-1.030); Urobilinogen Urine Negative (Negative)
[2022-12-26 16:31] LABS: Bilirubin Urine 1+ (Negative)
[2022-12-26 16:55] LABS: RBC Urine Automated 0-4 /hpf (0-4)
--- NOTE | 2022-12-26 17:11 | Electrocardiogram Report ---
Test Reason : Blood Pressure : / mmHG Vent. Rate : 111 BPM Atrial Rate : 111 BPM P-R Int : 116 ms QRS Dur : 082 ms QT Int : 330 ms P-R-T Axes : 059 039 065 degrees QTc Int : 448 ms Sinus tachycardia Low voltage QRS Cannot rule out Inferior infarct , age undetermined Abnormal ECG When compared with ECG of 08-DEC-2022 12:42, Minimal criteria for Inferior infarct are now Present T wave inversion no longer evident in Anterior leads T wave inversion now evident in Lateral leads Confirmed by Davin Washington ([id number]) on 12/26/2022 5:11:21 PM Referred By: REFERRED SELF Confirmed By:David Washingtno
--- NOTE | 2022-12-26 17:49 | History & Physical Report ---
Date of Service December 26, 2022 Assessment & Plan (1) Neutropenia: Plan: 67 yo female with neutropenia and lactic acidosis in the setting of dehydratio. Concern over SBO. will repeat imaging in AM. will keep NPO. continue IVF. place on emipric antibiotics and recheck CBC in AM. will repeat blood work. (2) Abdominal pain: Plan: likely due to malignancy possible SBO may also have SBP, may consider paracenthesis tomorrow. will repeat KUB. (3) Acute dehydration: Plan: placed on IVF. Patient with lactic acidsosi, this may be type b lactic acidosis. will monitor her bicarb, if it decreases further may consider placing on bicarb drip. (4) Abnormal LFTs: Plan: will continue to monitor LFTs (5) Cancer of liver: Plan: stage 4 breast cancer to liver. (6) Ascites: Plan: may need paracenthesis. (7) Hypertension: Plan: will hold bp meds History of Present Illness Chief Complaint: poor oral intake Primary Care Provider: Jr Ovalle MD Ms. Barrientos is a 67 yo female with significant PMH that includes: stage IV right breast cancer She recently started chemotherapy in November of 2022 and received gemcitabi ne/carboplatin The patient arrived in [place] with altered mental status weakness and poor oral intake for the past few week. The patient is very lethargic at the time of the interview. Consult placed to hospitalist service for patient to be admitted to the hospital. Allergies Allergy/AdvReac Type Severity Reaction Status Date / Time acetaminophen Allergy Intermediate Hives Verified 12/26/22 16:35 sertraline Allergy Intermediate groggy Verified 12/26/22 16:35 Home Medications Medication Instructions Recorded Confirmed Type lorazepam 0.5 mg tablet (Ativan) 0.5 mg PO DAILY PRN anxiety before 12/27/21 12/26/22 Rx doctors appointments #20 tabs multivitamin 1 tab PO QAM 12/27/21 12/26/22 History furosemide 20 mg tablet (Lasix) 20 mg PO QAM 12/09/22 12/26/22 History olanzapine 2.5 mg tablet See Rx Instructions PO .COMPLEX 12/09/22 12/26/22 Rx #30 tabs ondansetron HCl 8 mg tablet 8 mg PO Q8H PRN nausea and 12/09/22 12/26/22 Rx vomiting #90 tabs prochlorperazine maleate 10 mg 10 mg PO QID PRN nausea and 12/09/22 12/26/22 Rx tablet vomiting #90 tabs losartan 50 mg tablet 50 mg PO HS #90 tabs 12/23/22 12/26/22 Rx tramadol 50 mg tablet 50 mg PO BID PRN Pain 12/26/22 12/26/22 History zolpidem 5 mg tablet (Ambien) 5 mg PO HS 12/26/22 12/26/22 History Past Med/Surg History Medical History Advanced care planning/counseling discussion Ascites paracentesis dependent spring 2022 Breast cancer stage 4 w/ liver mets Chronic kidney disease, stage 3b new as of November 2022 Depression with anxiety Diverticular disease s/p sigmoid colectomy History of anemia Hx of colonic polyp Polyp removed Dr. Beck Cespedes age 46 Hx of peptic ulcer Hypertension Infiltrating ductal carcinoma of right breast Palliative care by specialist Peripheral neuropathy Raynauds disease Surgical History H/O lumpectomy Right lumpectomy with right SNL biopsy and axillary lymph node biopsy Per pt no limb restrictions H/O oral surgery root canals H/O total hysterectomy History of abdominal surgery 01/2022 sigmoid colectomy and ileostomy creation to address L iliacus/sigmoid colon/vaginal fistula and diverticulitis 04/2022 ileostomy reversal History of breast biopsy right History of colonoscopy History of dilatation and curettage History of esophagogastroduodenoscopy (EGD) History of removal of Port-a-Cath (03/26/21) Access Port Removal Dr. Pastor 03-26-2021 History of reversal of ileostomy 05/2022 @ [facility] Nausea and vomiting after administration of anesthetic agent Port-A-Cath in place (11/04/19) Insertion of Mediport Left Internal Jugular Vein Dr. Pastor 11-04-19 Family History Sister Hypertension Thyroid disorder Father Alcoholism History of pneumonia from pneumonia age 50s aspiration pneumonia Sister Thyroid disorder Mother Sudden , Onset Age: 75 unsure the cause Other No family history of adverse response to anesthesia Denies family history of Ovarian cancer Prostate cancer Breast cancer Lung cancer Colorectal cancer Social History Smoking Status: Unknown if ever smoked Tobacco Type: Cigarettes Second Hand Exposure: No; Do You Dip or Chew Tobacco: No; Preferred Language: Yakut Communication Ability: Impaired Visual Impairment: No Limitations Hearing Ability: Use of Hearing Aid Lead Performance Support Analyst Required: No Beliefs That Will Affect Care: None marital status: Current Living Situation: Other Current Living Situation Comment: unknown- pt confused, no family at bedside current occupational status: employed 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 Feels Safe at Home: Yes Childhood Exposure to Second-Hand Smoke: No Diet: regular Seatbelt Use: always Sunscreen Use: Yes Assistive Devices: None Assistive Devices Comment: unknown- pt confused, no family at bedside Review of Systems Review of Systems: Unobtainable due to cognitive status Physical Exam Constitutional: + ill appearing and average body habitus Eyes: PERRL, conjunctivae normal, anicteric sclerae icteric sclera ENMT: external ear and nose normal, oropharynx normal Neck: trachea midline, no thyromegaly Respiratory: normal respiratory effort, lungs clear to auscultation Cardiovascular: Rate/Rhythm: regular rate and + tachycardic Gastrointestinal (Abdomen): Inspection/Auscultation: + abdomen distended Percussion/Palpation: abdomen soft and + ascites Musculoskeletal: Head/Neck/Chest: normocephalic Neurologic: + obtunded Psychiatric: lethargic Lymphatic: no cervical or axillary lymphadenopathy Results & Data Results & Data Vital Signs (Past 12 Hours) Vital Signs Temp Pulse Resp BP Pulse Ox O2 Del Method 12/26/22 17:30 108 H 23 100 Room Air 12/26/22 17:30 103/60 12/26/22 17:15 111 H 23 100 Room Air 12/26/22 17:15 94/57 L 12/26/22 17:00 106 H 21 100 Room Air 12/26/22 17:00 84/59 L 12/26/22 16:45 109 H 19 100 Room Air 12/26/22 16:45 98/66 L 12/26/22 16:45 36.7 C 12/26/22 16:30 109 H 18 100 Room Air 12/26/22 16:30 101/64 12/26/22 16:15 112 H 21 100 Room Air 05/15/23 16:15 96/68 L 12/26/22 16:00 107 H 18 100 Room Air 12/26/22 16:00 100/60 12/26/22 15:45 112 H 18 100 Room Air 12/26/22 15:37 100 Room Air 12/26/22 15:15 112 H 22 100 Room Air 12/26/22 15:15 96/51 L 12/26/22 15:00 108 H 18 100 Room Air 12/26/22 15:00 101/57 L 12/26/22 14:45 109 H 24 100 Room Air 12/26/22 14:45 121/69 12/26/22 14:30 107 H 24 100 Room Air 12/26/22 14:30 124/69 12/26/22 14:15 107 H 25 H 100 Room Air 12/26/22 14:15 119/74 12/26/22 14:05 116/60 12/26/22 14:05 107 H 21 100 Room Air 12/26/22 14:04 105 H 30 H 12/26/22 13:48 100/46 L 12/26/22 13:48 105 H 21 12/26/22 13:45 106 H 23 12/26/22 13:49 100 Room Air 12/26/22 13:47 36.5 C 12/26/22 13:46 Room Air 12/26/22 13:42 107 H 12/26/22 13:04 35.6 C L 111 H 18 79/52 L 99 PG Care Time/CCT Total # of Minutes Spent Total Time Spent with Patient: Total time spent is greater than 50% in coordination of care (as documented) at patient's floor/unit and/or counseling patient: Coding Level of Care Code 19240 INT INP/OBS CARE 375MIN Diagnoses Neutropenia D70.9 Neutropenia type: unspecified Abdominal pain R10.84 Abdominal location: generalized Acute dehydration E86.0 Abnormal LFTs R79.89 Cancer of liver C22.9 Liver malignancy type: unspecified liver malignancy Ascites R18.0 Ascites type: malignant Hypertension I10 (1) Neutropenia Neutropenia type: unspecified Qualified Code(s): D70.9 - Neutropenia, unspecified (2) Abdominal pain Abdominal location: generalized Qualified Code(s): R10.84 - Generalized abdominal pain (5) Cancer of liver Liver malignancy type: unspecified liver malignancy Qualified Code(s): C22.9 - Malignant neoplasm of liver, not specified as primary or secondary (6) Ascites Ascites type: malignant Qualified Code(s): R18.0 - Malignant ascites
[2022-12-26] MEDS ORDERED: PIPERACILLIN/TAZOBACTAM 4.5 GM (over 30 mins) IV ONE (18:15)
[2022-12-26] MEDS: SODIUM CHLORIDE 0.9% 1000ML 1,000 ML IV SCH (18:19)
[2022-12-26] MEDS: ZOLPIDEM TARTRATE 5 MG TAB PO SCH (19:39)
[2022-12-26] MEDS ORDERED: HEPARIN SOD 5,000 UNIT/0.5 ML VIAL SQ STA (23:28)
[2022-12-27] MEDS: PIPERACILLIN/TAZOBACTAM 4.5 GM in DEXTROSE 5% 100 ML IV SCH ×2 (02:58→15:12)
[2022-12-27 07:30] LABS: Hematocrit (blood only) 30.6 % (37.0-47.0); Hemoglobin 10.9 g/dl (12.0-16.0); Mean Corpuscular Hemoglobin 29.8 pg (25.0-34.0); Mean Corpuscular Hgb Conc 35.6 g/dL (32.0-36.0); Mean Corpuscular Volume 83.6 fL (80.0-100.0); Mean Platelet Volume 9.1 fL (9.4-12.4); Platelet Count 145 K/uL (130-400); RDW Coefficient of Variation 23.1 % (11.5-14.5); RDW Standard Deviation 53.5 fL (36.4-46.3); Red Blood Count 3.66 M/uL (4.20-5.40); White Blood Count 0.67 K/ul (4.8-10.8)
[2022-12-27 07:33] LABS: Potassium 5.9 mmol/L (3.5-5.1)
[2022-12-27 07:34] LABS: Alanine Aminotransferase 85 U/L (7-52); Albumin Level 2.2 gm/dl (3.4-5.0); Alkaline Phosphatase 501 U/L (34-104); Anion Gap 17 (3-11); Aspartate Aminotransferase 415 U/L (13-39); BUN Creatinine Ratio 22.6 (10-20); Bilirubin,Total 4.6 mg/dl (0.2-1.0); Blood Urea Nitrogen 67 mg/dl (6-23); C Reactive Protein 26.49 mg/dl (0-0.5); Calcium 8.4 mg/dl (8.6-10.3); Carbon Dioxide 12 mmol/L (21-32); Chloride 108 mmol/L (98-107); Creatinine Clr Calc Pharmacy 18.1 ml/min; Est GFR (African American) 18.2 ml/min; Est GFR (Non-African American) 15.7 ml/min; Glucose 107 mg/dl (70-99(Fasting)); Sodium 137 mmol/L (136-145); Total Protein 5.3 gm/dl (6.0-8.3)
[2022-12-27] MEDS: SODIUM CHLORIDE 0.9% 1000ML 1,000 ML IV SCH (07:58)
[2022-12-27] MEDS ORDERED: STAT IV STA (09:02)
[2022-12-27] MEDS ORDERED: SODIUM BICARBONATE 8.4% 75 MEQ in DEXTROSE 5% 1,000 ML IV SCH (09:15)
[2022-12-27 09:25] LABS: Base Excess ABG -15.2 mEq/L (-9-1.8); HCO3 ABG 9 mmol/L (19-24); Oxygen Saturation ABG 99.3 % (90-95); PCO2 ABG 17 mmHg (35-46); PO2 ABG 93 mmHg (80-95); pH ABG 7.32 (7.35-7.45)
--- NOTE | 2022-12-27 09:39 | Nephrology Consultation ---
Date of Consultation December 27, 2022 Assessment & Plan (1) MARISA (acute kidney injury): stage 2 MARISA on rapidly progressive CKD as below. Presenting creatinine 3; baesline creatinine 1.5. She was hypotensive for several hours on the day of admission; may also have been complicated by recent paracentesis > unclear if albumin was given or if losartan held >daily bmp -cont to avoid nephrotoxins, nsaids, IV contrast; she should not resume losartan -no indication for emergent dialysis but significant risk to need it at some point -strict I/O (2) Lactic acidosis: with hyperkalemia; in setting of hyperkalemia, hyperphosphatemia concerning for dying tissue >> again concern for enteritis/partial SBO. Changes are too far out from 12/12 chemo treatment to be c/w tumor lysis >[place] when taking po >changed to hypotonic bicarb to isotonic bicarb gtt w/ 1 L to be given then TRA 80 mL/hr; stopped NS >one stat lasix 20 MG IV >continue antibiotics and neutropenic sepsis work up >with her tachycardia, cancer dx, obligate holding of heparin w/ recent thrombocytopenia >> low threshold to evaluate for PE without use of IV contrast >repeat bmp ordered for 1600 > slightly improved (3) Abdominal pain: may relate to presumed platin based therapy but possible role for stomatitis/issues related to anastomosis/ileostomy reversal site based on imaging -recommend surgical evaluation for possible partial small bowel obstruction (4) Chronic kidney disease, stage 3b: no CKD fall 2021 or prior. now spring 2022 with CKD 3B. (?what transpired in [place] where she spent the winter) -needs nephro f/u at d/c (5) Breast cancer: recommend confirming what tx was given 12/12 to better understand current clinical status >eval for PE as above History of Present Illness Reason for Consultation: hyperkalemia, acidosis Requesting Physician: Dr Reagan Attending Physician: Aristeo Reagan History of Present Illness 67 year old F whom I'm asked to see for hyperkalemia and acidosis was admitted last evening for management of neutropenia, dehydration, and abdominal pain. Noted to have lactic acidosis on admissoin. PMH includes breast cancer w/ liver metastases, HTN. She has hx of complex vaginal/colonic fistula and diverticulitis s/p colecotmy with ileostomy 01/2022 [facility] [place] and ileostomy reversal 04/2022. She had a 4.1L paracentesis on 12/20 . She has rapidly progressive CKD now 3B as of Spring 2022 w/ no CKD fall 2021 and previously. She is undergoing chemotherapy for breast cancer at the [facility] w/ first treatment on 12/12; no details available of what she actually received but carboplatin/gemcitabine was planned at preliminary visit. She was sent to [facility] ER on 12/16 for platelet transfusion for platelets of 13K w/ nosebleeds. Her creatinine at that time was 1.5; it has run 1.5-1.7 from mid November through 12/19 this spring. On presentation here yesterday creatinine was 3, unchanged this am. her lactate is 5, bicarb running low teens. K this AM 5.9. I tried several times to evaluate pt today but she was off floor x 2. when I did find her late afternoon, her son, , DIL were at bedside. pt was too confused to give hx. Allergies Allergy/AdvReac Type Severity Reaction Status Date / Time acetaminophen Allergy Intermediate Hives Verified 12/26/22 16:35 sertraline Allergy Intermediate groggy Verified 12/26/22 16:35 Home Medications Medication Instructions Recorded Confirmed Type lorazepam 0.5 mg tablet (Ativan) 0.5 mg PO DAILY PRN anxiety before 12/27/21 12/26/22 Rx doctors appointments #20 tabs multivitamin 1 tab PO QAM 12/27/21 12/26/22 History furosemide 20 mg tablet (Lasix) 20 mg PO QAM 12/09/22 12/26/22 History olanzapine 2.5 mg tablet See Rx Instructions PO .COMPLEX 12/09/22 12/26/22 Rx #30 tabs ondansetron HCl 8 mg tablet 8 mg PO Q8H PRN nausea and 12/09/22 12/26/22 Rx vomiting #90 tabs prochlorperazine maleate 10 mg 10 mg PO QID PRN nausea and 12/09/22 12/26/22 Rx tablet vomiting #90 tabs losartan 50 mg tablet 50 mg PO HS #90 tabs 12/23/22 12/26/22 Rx tramadol 50 mg tablet 50 mg PO BID PRN Pain 12/26/22 12/26/22 History zolpidem 5 mg tablet (Ambien) 5 mg PO HS 12/26/22 12/26/22 History Patient History Medical History Advanced care planning/counseling discussion Ascites paracentesis dependent spring 2022 Breast cancer stage 4 w/ liver mets Chronic kidney disease, stage 3b new as of November 2022 Depression with anxiety Diverticular disease s/p sigmoid colectomy History of anemia Hx of colonic polyp Polyp removed Dr. Beck Cespedes age 46 Hx of peptic ulcer Hypertension Infiltrating ductal carcinoma of right breast Palliative care by specialist Peripheral neuropathy Raynauds disease Surgical History H/O lumpectomy Right lumpectomy with right SNL biopsy and axillary lymph node biopsy Per pt no limb restrictions H/O oral surgery root canals H/O total hysterectomy History of abdominal surgery 01/2022 sigmoid colectomy and ileostomy creation to address L iliacus/sigmoid colon/vaginal fistula and diverticulitis 04/2022 ileostomy reversal History of breast biopsy right History of colonoscopy History of dilatation and curettage History of esophagogastroduodenoscopy (EGD) History of removal of Port-a-Cath (03/26/21) Access Port Removal Dr. Pastor 03-26-2021 History of reversal of ileostomy 05/2022 @ [facility] Nausea and vomiting after administration of anesthetic agent Port-A-Cath in place (11/04/19) Insertion of Mediport Left Internal Jugular Vein Dr. Pastor 11-04-19 Family History Sister Hypertension Thyroid disorder Father Alcoholism History of pneumonia from pneumonia age 50s aspiration pneumonia Sister Thyroid disorder Mother Sudden , Onset Age: 75 unsure the cause Other No family history of adverse response to anesthesia Denies family history of Ovarian cancer Prostate cancer Breast cancer Lung cancer Colorectal cancer Social History Smoking Status: Unknown if ever smoked Tobacco Type: Cigarettes Second Hand Exposure: No; Do You Dip or Chew Tobacco: No; Preferred Language: Syrian Communication Ability: Impaired Visual Impairment: No Limitations Hearing Ability: Use of Hearing Aid Nurse Discharge Required: No Beliefs That Will Affect Care: None marital status: Current Living Situation: Other Current Living Situation Comment: unknown- pt confused, no family at bedside current occupational status: employed 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 Feels Safe at Home: Yes Childhood Exposure to Second-Hand Smoke: No Diet: regular Seatbelt Use: always Sunscreen Use: Yes Assistive Devices: None Assistive Devices Comment: unknown- pt confused, no family at bedside Review of Systems Review of Systems: Unobtainable due to reduced consciousness Physical Exam Constitutional: well developed, + acute distress (mild w/ intermittent moaning), + ill appearing, + cachectic and + malnourished Eyes: EOM intact bilaterally ENMT: Ears: no external ear abnormality Nose: no external nose abnormality Mouth: + dry oral mucous membranes Neck: no nuchal rigidity Respiratory: normal respiratory effort Auscultation: + diminished lung sounds Cardiovascular: Rate/Rhythm: regular rhythm and + tachycardic Extremities: + edema Gastrointestinal (Abdomen): Inspection/Auscultation: normal bowel sounds Percussion/Palpation: abdomen soft; abdomen nontender Musculoskeletal: Extremities: strength 5/5 throughout Skin: no rashes, warm and dry Neurologic: cody, no tremor, obtunded Results & Data Vital Signs (Past 12 Hours) Vital Signs Temp Pulse Pulse Resp BP BP Pulse Ox 12/27/22 08:00 36.9 C 120 H 19 109/63 12/27/22 03:32 36.4 C L 116 H 20 119/72 94 12/27/22 00:05 106 H 12/26/22 23:09 36.6 C 111 H 20 137/81 94 O2 Del Method 12/27/22 08:00 Room Air 12/27/22 03:32 Room Air 12/27/22 00:05 12/26/22 23:09 Room Air Laboratory Results 12/27/22 06:47 12/27/22 06:[address] a/p non con Lung bases: The heart is mildly enlarged noting trace pericardial effusion. The coronary arteries are densely calcified. The lung bases are clear noting bibasilar scarring/atelectasis. There is a moderate hiatal hernia which also contains ascitic fluid. Liver: The unenhanced liver is enlarged an heterogeneous, measuring 22.5 cm in length. The liver is infiltrated by diffuse/multifocal metastatic disease. This is similar to before 2623 examination. There is no intrahepatic biliary ductal dilatation. Gallbladder: Unremarkable. Spleen: Normal in size and attenuation. There are calcified splenic granulomas. Pancreas: The unenhanced pancreas is grossly unremarkable. Adrenal glands: Unremarkable. Kidneys: The unenhanced kidneys demonstrate mild cortical atrophy and are without hydronephrosis. There are no renal calculi identified. There is no evidence of contour deforming renal mass lesion. Abdominal vasculature: The abdominal aorta is normal in course and caliber noting advanced atherosclerotic calcification. Bowel: There is postoperative change from sigmoid colon resection with colo colonic anastomosis. A small bowel anastomosis is seen in the right lower quadrant. There are distended and fecalized loops of small bowel above anastomosis which are mildly thick walled and measure up to 2.8 cm diameter (axial image #322). The small bowel below the anastomosis is decompressed, and a partial obstruction is not excluded. There is mild colonic diverticulosis without CT evidence of acute diverticulitis. Mild wall thickening suggested throughout the colon. The appendix is well-visualized and normal. Peritoneum: There is a moderate volume of abdominopelvic ascites. No intraperito naomy free air is seen. Lymphadenopathy: None. Pelvic viscera: The bladder is decompressed and grossly unremarkable. The uterus is surgically absent. No adnexal lesion is seen. Skeletal structures: The skeletal structures are heterogeneously osteopenic. 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 Represent a lesions are seen in the body of T11 on image #103, the body of L5 on image #259, and the left iliac wing on image #259, and in the medial right ilium on image #277. IMPRESSION: 1. There are distended and thick-walled loops of fecalized small bowel in the pelvis. An apparent transition point is seen at a small bowel anastomosis in the right midabdomen, and the distal small bowel is decompressed. Differential considerations include a nonspecific enteritis and/or a partial small bowel obstruction. A small bowel obstruction is favored and clinical correlation will be essential. 2. The liver is enlarged and infiltrated by diffuse hepatic metastatic disease. This is similar in appearance date 12/07/2022 PET examination. 3. 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 4. Moderate volume of abdominopelvic ascites. This has increased from previous. 5. There is mild wall thickening and edema suggested throughout the colon. This could be due to hepatic dysfunction/fluid overload. Correlate clinically for evidence of a nonspecific colitis. 6. Additional findings as above. CXR, head CT w/o acute processes (3) Abdominal pain Abdominal location: generalized Qualified Code(s): R10.84 - Generalized abdominal pain
[2022-12-27 09:51] LABS: Allen Test Pos (Pos)
[2022-12-27 10:16] LABS: Creatine Kinase 265 U/L (26-192); Phosphorus 6.2 mg/dl (2.5-4.9)
[2022-12-27] MEDS ORDERED: FUROSEMIDE INJ 20 MG/2 ML VIAL IV ONE (11:00)
[2022-12-27] MEDS ORDERED: SODIUM BICARBONATE 8.4% 150 MEQ in DEXTROSE 5% 1,000 ML IV SCH ×2 (11:00→15:00)
--- NOTE | 2022-12-27 12:12 | XRay Report ---
KUB CLINICAL HISTORY: Generalized abdominal pain. FINDINGS: 2 AP, portable, supine abdominal radiographs are correlated with abdominal CT dated 12/27/19 23. Suture material and surgical clips project over the lower abdomen and pelvis. There is no radiogr aphic evidence of high-grade bowel obstruction. Increased density throughout the abdomen likely corre sponds to ascites. There are calcific granulomas in the spleen. The skeletal structures are osteopeni c and appear intact. IMPRESSION: 1. There is no radiographic evidence of high-grade bowel obstruction. Findings of possible enteritis and/or partial small bowel obstruction seen on yesterday's CT scan are not well assessed by x-ray. 3. Increased density throughout the abdomen likely represents ascites. Electronically signed by: Moi Cronin M.D. 12/27/2022 12:10 PM
--- NOTE | 2022-12-27 12:35 | Ultrasound Report ---
BILATERAL LOWER EXTREMITY VENOUS DOPPLER HISTORY: Acute pain and swelling of the lower legs tachycardia/ concern for Pulmonary embolism COMPARISON STUDY: None. FINDINGS: There is normal compressibility, flow, and augmentation within the bilateral lower extremit y deep venous systems. Limited exam secondary to subcutaneous edema and patient motion. IMPRESSION: No DVT within the right or left lower extremity. ACT 112: Negative or not required by law. Electronically signed by: Juancarlos Yoo M.D. 12/27/2022 12:34 PM
[2022-12-27] MEDS: FILGRASTIM 480 MCG/1.6 ML VIAL SC SCH (12:47)
--- NOTE | 2022-12-27 13:45 | Surgery Consultation ---
Date of Consultation December 27, 2022 Assessment & Plan (1) Breast cancer: (2) Chronic kidney disease, stage 3b: (3) Ascites: (4) Lactic acidosis: (5) Neutropenia: (6) Abdominal pain: (7) MARISA (acute kidney injury): Plan 67 year-old female with history of stage III right breast cancer s/p neoadjuvant chemotherapy, lumpectomy and SNLB in 2019 now with stage IV breast cancer to liver and bone. Presented to emergency department from PCP office due to dehydration, hypotension, and decreased urine output. Found to be severely neutropenic, with MARISA with creatinine at 3.0 , and elevated lactic acidosis. Recent platelet transfusion at [facility] (12/16/22) and recent paracentesis with removal of 4.0 liters of ascitic fluid on 12/20/22. CT with possible early partial SBO vs enteritis. KUB today showing no signs of obstruction. Plan: Given patients neutropenia, MARISA, recent paracentesis, concern for possible SBP. Would recommend repeat paracentesis with cytology and culture to eval for SBP Continue IV antibiotics Given patients current clinical deterioration, Dr. Christie discussed with Son that she would likely not survive any surgical intervention. Fortunately KUB today showing no signs of obstruction. Would continue conservative management with bowel rest for now until further paracentesis and work-up. Discussed getting palliative care consulted to discuss goals of care with patient and family given patients clinical deterioration and guarded prognosis. Also discussed med/onc consult to determine future chemo plans given her admission and current clinical status. Son was questioning about port placement. Advised son this would not be placed during this admission given her severe neutropenia, concern for infection, and MARISA. Pain management as needed antiemetics as needed Continue medical management Discussed with Dr. Reagan. Dr. Christie has seen and examined pt, agrees with above. History of Present Illness Reason for Consultation: possible small bowel obstruction Requesting Physician: Aristeo Reagan Attending Physician: Aristeo Reagan History of Present Illness Ericka is a 67 year-old female with history of stage III breast cancer treated with neoadjuvant chemotherapy and then breast lumpectomy and SLNB in 2019 now unfortunately with stage 4 metastatic breast cancer to lung and bone. She was in [place] for 6 months and started developing abdominal distention, weakness, weight loss and was found to have liver metastases and liver biopsy confirming metastatic adenocarcinoma of breast origin. She presented to emergency department yesterday from her PCP office due to dehydration and clinical deterioration with decreased appetite and hypotension. Found to be severely neutropenic with elevated creatinine at 3 and elevated lactic acidosis. She has had chemotherapy and follows with Dr. Peters. There was plan for port placement by Dr. Pastor however this had to be cancelled as her platelet count has been severely low. She just recently had paracentesis here at [facility] on 12/20/22 and had 4.1 liters of ascitic fluid removed. Patient is poor historian and does not provide much history. Son at bedside states she has been progressively getting worse at home with decrease appetite and not eating or drinking much. Has been having increasing abdominal pain and distention. Unsure exactly of when this all started as she was down in [place]. ER work-up included a CT scan of abdomen and pelvis which showed moderate abdominopelvic ascites as well as possible partial small bowel obstruction vs enteritis. Lactic acid was 5.1. Allergies Allergy/AdvReac Type Severity Reaction Status Date / Time acetaminophen Allergy Intermediate Hives Verified 12/26/22 16:35 sertraline Allergy Intermediate groggy Verified 12/26/22 16:35 Home Medications Medication Instructions Recorded Confirmed Type lorazepam 0.5 mg tablet (Ativan) 0.5 mg PO DAILY PRN anxiety before 12/27/21 12/26/22 Rx doctors appointments #20 tabs multivitamin 1 tab PO QAM 12/27/21 12/26/22 History furosemide 20 mg tablet (Lasix) 20 mg PO QAM 12/09/22 12/26/22 History olanzapine 2.5 mg tablet See Rx Instructions PO .COMPLEX 12/09/22 12/26/22 Rx #30 tabs ondansetron HCl 8 mg tablet 8 mg PO Q8H PRN nausea and 12/09/22 12/26/22 Rx vomiting #90 tabs prochlorperazine maleate 10 mg 10 mg PO QID PRN nausea and 12/09/22 12/26/22 Rx tablet vomiting #90 tabs losartan 50 mg tablet 50 mg PO HS #90 tabs 12/23/22 12/26/22 Rx tramadol 50 mg tablet 50 mg PO BID PRN Pain 12/26/22 12/26/22 History zolpidem 5 mg tablet (Ambien) 5 mg PO HS 12/26/22 12/26/22 History Patient History Medical History (Updated 12/27/22 @ 15:11 by Radha Florence DNP) Advanced care planning/counseling discussion Ascites paracentesis dependent spring 2022 Breast cancer stage 4 w/ liver mets Chronic kidney disease, stage 3b new as of November 2022 Depression with anxiety Diverticular disease s/p sigmoid colectomy History of anemia Hx of colonic polyp Polyp removed Dr. Solares Benign age 46 Hx of peptic ulcer Hypertension Infiltrating ductal carcinoma of right breast Palliative care by specialist Peripheral neuropathy Raynauds disease Surgical History (Updated 12/27/22 @ 10:11 by Jennifer Cruz MD, PhD) H/O lumpectomy Right lumpectomy with right SNL biopsy and axillary lymph node biopsy Per pt no limb restrictions H/O oral surgery root canals H/O total hysterectomy History of abdominal surgery 01/2022 sigmoid colectomy and ileostomy creation to address L iliacus/sigmoid colon/vaginal fistula and diverticulitis 04/2022 ileostomy reversal History of breast biopsy right History of colonoscopy History of dilatation and curettage History of esophagogastroduodenoscopy (EGD) History of removal of Port-a-Cath (03/26/21) Access Port Removal Dr. Pastor 03-26-2021 History of reversal of ileostomy 05/2022 @ [facility] Nausea and vomiting after administration of anesthetic agent Port-A-Cath in place (11/04/19) Insertion of Mediport Left Internal Jugular Vein Dr. Pastor 11-04-19 Family History Sister Hypertension Thyroid disorder Father Alcoholism History of pneumonia from pneumonia age 50s aspiration pneumonia Sister Thyroid disorder Mother Sudden , Onset Age: 75 unsure the cause Other No family history of adverse response to anesthesia Denies family history of Ovarian cancer Prostate cancer Breast cancer Lung cancer Colorectal cancer Social History Smoking Status: Unknown if ever smoked Tobacco Type: Cigarettes Second Hand Exposure: No; Do You Dip or Chew Tobacco: No; Preferred Language: Yi Communication Ability: Impaired Visual Impairment: No Limitations Hearing Ability: Use of Hearing Aid 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 Receivable 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 Required: No Beliefs That Will Affect Care: None marital status: Current Living Situation: Other Current Living Situation Comment: unknown- pt confused, no family at bedside current occupational status: employed 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 Physical Exam Constitutional: + ill appearing, + cachectic, + frail appearing and + lethargic; no acute distress and not combative elderly appearing 67 year-old female , frail, and lethargic. ENMT: Mouth: + dry oral mucous membranes Respiratory: normal respiratory effort; no respiratory distress, no labored breathing and no retractions Gastrointestinal (Abdomen): Inspection/Auscultation: + abdomen distended (moderate distention) and + abdominal surgical scar Percussion/Palpation: + abdomen tender (generalized tenderness throughtout abdomen), abdomen soft and + ascites; no guarding and abdomen not rigid Skin: no rashes, warm and dry Psychiatric: Orientation: alert and oriented x 3 Results & Data Vital Signs (Past 12 Hours) Vital Signs Temp Pulse Resp BP BP Pulse Ox O2 Del Method 12/27/22 12:00 36.8 C 114 H 16 115/63 96 Room Air 12/27/22 08:00 Room Air 12/27/22 08:00 36.9 C 120 H 19 109/63 Room Air 12/27/22 03:32 36.4 C L 116 H 20 119/72 94 Room Air Laboratory Results 12/27/22 12/27/22 12/27/22 Range/Units 09:04 06:47 06:47 WBC 0.67 L* (4.8-10.8) K/ul RBC 3.66 L (4.20-5.40) M/uL Hgb 10.9 L (12.0-16.0) g/dl Hct 30.6 L (37.0-47.0) % MCV 83.6 (80.0-100.0) fL MCH 29.8 (25.0-34.0) pg MCHC 35.6 (32.0-36.0) g/dL RDW Std Deviation 53.5 H (36.4-46.3) fL RDW Coeff of Moon 23.1 H (11.5-14.5) % Plt Count 145 (130-400) K/uL MPV 9.1 L (9.4-12.4) fL Immature Gran % (Auto) % Neut % (Auto) % Lymph % (Auto) % [place] % (Auto) % Eos % (Auto) % Baso % (Auto) % Neut # (Auto) (1.40-6.50) K/uL Lymph # (Auto) (1.2-3.4) K/uL [place] # (Auto) (0.11-0.59) K/uL Eos # (Auto) (0-0.50) K/uL Baso # (Auto) (0-0.2) K/uL Immature Gran # (Auto) (0.01-0.20) K/uL PT (9.0-12.0) Seconds INR (0.9-1.1) APTT (21.0-31.0) Seconds PTT Ratio ABG pH 7.32 L (7.35-7.45) ABG pCO2 17 L (35-46) mmHg ABG pO2 93 (80-95) mmHg ABG HCO3 9 L (19-24) mmol/L ABG O2 Saturation 99.3 H (90-95) % ABG Base Excess -15.2 L (-9-1.8) mEq/L Rehan Test Pos (Pos) VBG pH (7.36-7.41) VBG pCO2 (38-50) mmHg VBG pO2 mmHg VBG HCO3 mmol/L VBG O2 Saturation % VBG Base Excess mEq/L Oxygen Given ROOM AIR Sodium (136-145) mmol/L Potassium (3.5-5.1) mmol/L Chloride (98-107) mmol/L Carbon Dioxide (21-32) mmol/L Anion Gap (3-11) BUN (6-23) mg/dl Creatinine (0.6-1.2) mg/dl Est Cr Clr Drug Dosing ml/min Est GFR ( Amer) ml/min Est GFR (Non-Af Amer) ml/min BUN/Creatinine Ratio (10-20) Glucose (70-99(Fasting)) mg/dl Lactate (0.4-2.0) mmol/L Calcium (8.6-10.3) mg/dl Phosphorus (2.5-4.9) mg/dl Magnesium (1.7-2.4) mg/dl Total Bilirubin (0.2-1.0) mg/dl Direct Bilirubin (0-0.2) mg/dl AST (13-39) U/L ALT (7-52) U/L Alkaline Phosphatase (34-104) U/L Total Creatine Kinase (26-192) U/L Troponin I High Sens (0-14) pg/ml C-Reactive Protein (0-0.5) mg/dl Total Protein (6.0-8.3) gm/dl Albumin (3.4-5.0) gm/dl Procalcitonin 8.42 H (0-0.5) ng/ml Urine Color Urine Appearance (Clear) Urine pH (4.5-7.5) Ur Specific [place] (1.000-1.030) Urine Protein (Negative) Urine Glucose (UA) (Negative) Urine Ketones (Negative) Urine Blood (Negative) Urine Nitrite (Negative) Urine Bilirubin (Negative) Urine Urobilinogen (Negative) Ur Leukocyte Esterase (Negative) Urine WBC (Auto) (0-5) /hpf Urine RBC (Auto) (0-4) /hpf U Hyaline Cast (Auto) (0-5) /lpf U Epithel Cells (Auto) (0-5) /lpf Urine Bacteria (Auto) (Negative) SARS-CoV-2 (PCR) (Negative) Influenza Type A (PCR) (Neg) Influenza Type B (PCR) (Neg) RSV (RT-PCR) (Neg) 12/27/22 12/26/22 12/26/22 Range/Units 06:47 15:44 15:42 WBC (4.8-10.8) K/ul RBC (4.20-5.40) M/uL Hgb (12.0-16.0) g/dl Hct (37.0-47.0) % MCV (80.0-100.0) fL MCH (25.0-34.0) pg MCHC (32.0-36.0) g/dL RDW Std Deviation (36.4-46.3) fL RDW Coeff of Moon (11.5-14.5) % Plt Count (130-400) K/uL MPV (9.4-12.4) fL Immature Gran % (Auto) % Neut % (Auto) % Lymph % (Auto) % [place] % (Auto) % Eos % (Auto) % Baso % (Auto) % Neut # (Auto) (1.40-6.50) K/uL Lymph # (Auto) (1.2-3.4) K/uL [place] # (Auto) (0.11-0.59) K/uL Eos # (Auto) (0-0.50) K/uL Baso # (Auto) (0-0.2) K/uL Immature Gran # (Auto) (0.01-0.20) K/uL PT (9.0-12.0) Seconds INR (0.9-1.1) APTT (21.0-31.0) Seconds PTT Ratio ABG pH (7.35-7.45) ABG pCO2 (35-46) mmHg ABG pO2 (80-95) mmHg ABG HCO3 (19-24) mmol/L ABG O2 Saturation (90-95) % ABG Base Excess (-9-1.8) mEq/L Rehan Test (Pos) VBG pH (7.36-7.41) VBG pCO2 (38-50) mmHg VBG pO2 mmHg VBG HCO3 mmol/L VBG O2 Saturation % VBG Base Excess mEq/L Oxygen Given Sodium 137 (136-145) mmol/L Potassium 5.9 H D (3.5-5.1) mmol/L Chloride 108 H (98-107) mmol/L Carbon Dioxide 12 L (21-32) mmol/L Anion Gap 17 H (3-11) BUN 67 H (6-23) mg/dl Creatinine 2.97 H (0.6-1.2) mg/dl Est Cr Clr Drug Dosing 18.1 ml/min Est GFR ( Amer) 18.2 ml/min Est GFR (Non-Af Amer) 15.7 ml/min BUN/Creatinine Ratio 22.6 H (10-20) Glucose 107 H (70-99(Fasting)) mg/dl Lactate 5.1 H* (0.4-2.0) mmol/L Calcium 8.4 L (8.6-10.3) mg/dl Phosphorus 6.2 H (2.5-4.9) mg/dl Magnesium (1.7-2.4) mg/dl Total Bilirubin 4.6 H (0.2-1.0) mg/dl Direct Bilirubin TNP (0-0.2) mg/dl AST 415 H (13-39) U/L ALT 85 H (7-52) U/L Alkaline Phosphatase 501 H (34-104) U/L Total Creatine Kinase 265 H (26-192) U/L Troponin I High Sens (0-14) pg/ml C-Reactive Protein 26.49 H (0-0.5) mg/dl Total Protein 5.3 L (6.0-8.3) gm/dl Albumin 2.2 L (3.4-5.0) gm/dl Procalcitonin (0-0.5) ng/ml Urine Color Dark Yellow Urine Appearance Cloudy A (Clear) Urine pH 5.0 (4.5-7.5) Ur Specific [place] 1.013 (1.000-1.030) Urine Protein Negative (Negative) Urine Glucose (UA) Negative (Negative) Urine Ketones Trace H (Negative) Urine Blood Negative (Negative) Urine Nitrite Negative (Negative) Urine Bilirubin 1+ H (Negative) Urine Urobilinogen Negative (Negative) Ur Leukocyte Esterase Trace H (Negative) Urine WBC (Auto) 1-5 (0-5) /hpf Urine RBC (Auto) 0-4 (0-4) /hpf U Hyaline Cast (Auto) 10-30 H (0-5) /lpf U Epithel Cells (Auto) >30 H (0-5) /lpf Urine Bacteria (Auto) Negative (Negative) SARS-CoV-2 (PCR) (Negative) Influenza Type A (PCR) (Neg) Influenza Type B (PCR) (Neg) RSV (RT-PCR) (Neg) 12/26/22 12/26/22 12/26/22 Range/Units 14:17 13:39 13:39 WBC (4.8-10.8) K/ul RBC (4.20-5.40) M/uL Hgb (12.0-16.0) g/dl Hct (37.0-47.0) % MCV (80.0-100.0) fL MCH (25.0-34.0) pg MCHC (32.0-36.0) g/dL RDW Std Deviation (36.4-46.3) fL RDW Coeff of Moon (11.5-14.5) % Plt Count (130-400) K/uL MPV (9.4-12.4) fL Immature Gran % (Auto) % Neut % (Auto) % Lymph % (Auto) % [place] % (Auto) % Eos % (Auto) % Baso % (Auto) % Neut # (Auto) (1.40-6.50) K/uL Lymph # (Auto) (1.2-3.4) K/uL [place] # (Auto) (0.11-0.59) K/uL Eos # (Auto) (0-0.50) K/uL Baso # (Auto) (0-0.2) K/uL Immature Gran # (Auto) (0.01-0.20) K/uL PT (9.0-12.0) Seconds INR (0.9-1.1) APTT (21.0-31.0) Seconds PTT Ratio ABG pH (7.35-7.45) ABG pCO2 (35-46) mmHg ABG pO2 (80-95) mmHg ABG HCO3 (19-24) mmol/L ABG O2 Saturation (90-95) % ABG Base Excess (-9-1.8) mEq/L Rehan Test (Pos) VBG pH 7.35 L (7.36-7.41) VBG pCO2 28 L (38-50) mmHg VBG pO2 32 mmHg VBG HCO3 16 mmol/L VBG O2 Saturation < 60.0 % VBG Base Excess -8.6 mEq/L Oxygen Given Sodium (136-145) mmol/L Potassium (3.5-5.1) mmol/L Chloride (98-107) mmol/L Carbon Dioxide (21-32) mmol/L Anion Gap (3-11) BUN (6-23) mg/dl Creatinine (0.6-1.2) mg/dl Est Cr Clr Drug Dosing ml/min Est GFR ( Amer) ml/min Est GFR (Non-Af Amer) ml/min BUN/Creatinine Ratio (10-20) Glucose (70-99(Fasting)) mg/dl Lactate (0.4-2.0) mmol/L Calcium (8.6-10.3) mg/dl Phosphorus (2.5-4.9) mg/dl Magnesium (1.7-2.4) mg/dl Total Bilirubin (0.2-1.0) mg/dl Direct Bilirubin (0-0.2) mg/dl AST (13-39) U/L ALT (7-52) U/L Alkaline Phosphatase (34-104) U/L Total Creatine Kinase (26-192) U/L Troponin I High Sens (0-14) pg/ml C-Reactive Protein (0-0.5) mg/dl Total Protein (6.0-8.3) gm/dl Albumin (3.4-5.0) gm/dl Procalcitonin 12.34 H (0-0.5) ng/ml Urine Color Urine Appearance (Clear) Urine pH (4.5-7.5) Ur Specific [place] (1.000-1.030) Urine Protein (Negative) Urine Glucose (UA) (Negative) Urine Ketones (Negative) Urine Blood (Negative) Urine Nitrite (Negative) Urine Bilirubin (Negative) Urine Urobilinogen (Negative) Ur Leukocyte Esterase (Negative) Urine WBC (Auto) (0-5) /hpf Urine RBC (Auto) (0-4) /hpf U Hyaline Cast (Auto) (0-5) /lpf U Epithel Cells (Auto) (0-5) /lpf Urine Bacteria (Auto) (Negative) SARS-CoV-2 (PCR) NEGATIVE (Negative) Influenza Type A (PCR) Negative (Neg) Influenza Type B (PCR) Negative (Neg) RSV (RT-PCR) Negative (Neg) 12/26/22 12/26/22 12/26/22 Range/Units 13:39 13:39 13:39 WBC 0.90 L* (4.8-10.8) K/ul RBC 3.92 L (4.20-5.40) M/uL Hgb 11.7 L (12.0-16.0) g/dl Hct 32.0 L (37.0-47.0) % MCV 81.6 (80.0-100.0) fL MCH 29.8 (25.0-34.0) pg MCHC 36.6 H (32.0-36.0) g/dL RDW Std Deviation 50.8 H (36.4-46.3) fL RDW Coeff of Moon 22.7 H (11.5-14.5) % Plt Count 240 (130-400) K/uL MPV 10.8 (9.4-12.4) fL Immature Gran % (Auto) 1.1 % Neut % (Auto) 22.2 % Lymph % (Auto) 68.9 % [place] % (Auto) 5.6 % Eos % (Auto) 1.1 % Baso % (Auto) 1.1 % Neut # (Auto) 0.20 L* (1.40-6.50) K/uL Lymph # (Auto) 0.62 L (1.2-3.4) K/uL [place] # (Auto) 0.05 L (0.11-0.59) K/uL Eos # (Auto) 0.01 (0-0.50) K/uL Baso # (Auto) 0.01 (0-0.2) K/uL Immature Gran # (Auto) 0.01 (0.01-0.20) K/uL PT 12.6 H (9.0-12.0) Seconds INR 1.2 H (0.9-1.1) APTT 30.1 (21.0-31.0) Seconds PTT Ratio 1.1 ABG pH (7.35-7.45) ABG pCO2 (35-46) mmHg ABG pO2 (80-95) mmHg ABG HCO3 (19-24) mmol/L ABG O2 Saturation (90-95) % ABG Base Excess (-9-1.8) mEq/L Rehan Test (Pos) VBG pH (7.36-7.41) VBG pCO2 (38-50) mmHg VBG pO2 mmHg VBG HCO3 mmol/L VBG O2 Saturation % VBG Base Excess mEq/L Oxygen Given Sodium (136-145) mmol/L Potassium (3.5-5.1) mmol/L Chloride (98-107) mmol/L Carbon Dioxide (21-32) mmol/L Anion Gap (3-11) BUN (6-23) mg/dl Creatinine (0.6-1.2) mg/dl Est Cr Clr Drug Dosing ml/min Est GFR ( Amer) ml/min Est GFR (Non-Af Amer) ml/min BUN/Creatinine Ratio (10-20) Glucose (70-99(Fasting)) mg/dl Lactate 4.8 H* (0.4-2.0) mmol/L Calcium (8.6-10.3) mg/dl Phosphorus (2.5-4.9) mg/dl Magnesium (1.7-2.4) mg/dl Total Bilirubin (0.2-1.0) mg/dl Direct Bilirubin (0-0.2) mg/dl AST (13-39) U/L ALT (7-52) U/L Alkaline Phosphatase (34-104) U/L Total Creatine Kinase (26-192) U/L Troponin I High Sens (0-14) pg/ml C-Reactive Protein (0-0.5) mg/dl Total Protein (6.0-8.3) gm/dl Albumin (3.4-5.0) gm/dl Procalcitonin (0-0.5) ng/ml Urine Color Urine Appearance (Clear) Urine pH (4.5-7.5) Ur Specific [place] (1.000-1.030) Urine Protein (Negative) Urine Glucose (UA) (Negative) Urine Ketones (Negative) Urine Blood (Negative) Urine Nitrite (Negative) Urine Bilirubin (Negative) Urine Urobilinogen (Negative) Ur Leukocyte Esterase (Negative) Urine WBC (Auto) (0-5) /hpf Urine RBC (Auto) (0-4) /hpf U Hyaline Cast (Auto) (0-5) /lpf U Epithel Cells (Auto) (0-5) /lpf Urine Bacteria (Auto) (Negative) SARS-CoV-2 (PCR) (Negative) Influenza Type A (PCR) (Neg) Influenza Type B (PCR) (Neg) RSV (RT-PCR) (Neg) 12/26/22 Range/Units 13:39 WBC (4.8-10.8) K/ul RBC (4.20-5.40) M/uL Hgb (12.0-16.0) g/dl Hct (37.0-47.0) % MCV (80.0-100.0) fL MCH (25.0-34.0) pg MCHC (32.0-36.0) g/dL RDW Std Deviation (36.4-46.3) fL RDW Coeff of Moon (11.5-14.5) % Plt Count (130-400) K/uL MPV (9.4-12.4) fL Immature Gran % (Auto) % Neut % (Auto) % Lymph % (Auto) % [place] % (Auto) % Eos % (Auto) % Baso % (Auto) % Neut # (Auto) (1.40-6.50) K/uL Lymph # (Auto) (1.2-3.4) K/uL [place] # (Auto) (0.11-0.59) K/uL Eos # (Auto) (0-0.50) K/uL Baso # (Auto) (0-0.2) K/uL Immature Gran # (Auto) (0.01-0.20) K/uL PT (9.0-12.0) Seconds INR (0.9-1.1) APTT (21.0-31.0) Seconds PTT Ratio ABG pH (7.35-7.45) ABG pCO2 (35-46) mmHg ABG pO2 (80-95) mmHg ABG HCO3 (19-24) mmol/L ABG O2 Saturation (90-95) % ABG Base Excess (-9-1.8) mEq/L Rehan Test (Pos) VBG pH (7.36-7.41) VBG pCO2 (38-50) mmHg VBG pO2 mmHg VBG HCO3 mmol/L VBG O2 Saturation % VBG Base Excess mEq/L Oxygen Given Sodium 133 L (136-145) mmol/L Potassium 4.9 (3.5-5.1) mmol/L Chloride 101 (98-107) mmol/L Carbon Dioxide 17 L (21-32) mmol/L Anion Gap 15 H (3-11) BUN 73 H (6-23) mg/dl Creatinine 3.01 H (0.6-1.2) mg/dl Est Cr Clr Drug Dosing 17.9 ml/min Est GFR ( Amer) 17.9 ml/min Est GFR (Non-Af Amer) 15.5 ml/min BUN/Creatinine Ratio 24.3 H (10-20) Glucose 99 (70-99(Fasting)) mg/dl Lactate (0.4-2.0) mmol/L Calcium 8.6 (8.6-10.3) mg/dl Phosphorus (2.5-4.9) mg/dl Magnesium 2.4 (1.7-2.4) mg/dl Total Bilirubin 5.3 H (0.2-1.0) mg/dl Direct Bilirubin 2.9 H (0-0.2) mg/dl AST 372 H (13-39) U/L ALT 83 H (7-52) U/L Alkaline Phosphatase 615 H (34-104) U/L Total Creatine Kinase (26-192) U/L Troponin I High Sens 22.8 H (0-14) pg/ml C-Reactive Protein 27.18 H (0-0.5) mg/dl Total Protein 5.9 L (6.0-8.3) gm/dl Albumin 2.4 L (3.4-5.0) gm/dl Procalcitonin (0-0.5) ng/ml Urine Color Urine Appearance (Clear) Urine pH (4.5-7.5) Ur Specific [place] (1.000-1.030) Urine Protein (Negative) Urine Glucose (UA) (Negative) Urine Ketones (Negative) Urine Blood (Negative) Urine Nitrite (Negative) Urine Bilirubin (Negative) Urine Urobilinogen (Negative) Ur Leukocyte Esterase (Negative) Urine WBC (Auto) (0-5) /hpf Urine RBC (Auto) (0-4) /hpf U Hyaline Cast (Auto) (0-5) /lpf U Epithel Cells (Auto) (0-5) /lpf Urine Bacteria (Auto) (Negative) SARS-CoV-2 (PCR) (Negative) Influenza Type A (PCR) (Neg) Influenza Type B (PCR) (Neg) RSV (RT-PCR) (Neg) Diagnostic Findings CT SCAN OF THE ABDOMEN AND PELVIS WITHOUT IV CONTRAST CLINICAL HISTORY: Generalized abdominal pain. History of metastatic disease. COMPARISON STUDY: Abdominal CT dated 01/29/2021. PET CT dated 12/07/2022. TECHNIQUE: CT scan of the abdomen and pelvis is performed from the lung bases to the proximal femora. Images are reviewed in the axial, sagittal, and coronal planes. IV contrast was not administered for this examination. Note that the examination was performed in suboptimal fashion without oral and IV contrast. There is also streak artifact from the arms which could not be elevated above the abdomen. A dose lowering technique was utilized adhering to the principles of ALARA. FINDINGS: Lung bases: The heart is mildly enlarged noting trace pericardial effusion. The coronary arteries are densely calcified. The lung bases are clear noting bibasilar scarring/atelectasis. There is a moderate hiatal hernia which also contains ascitic fluid. Liver: The unenhanced liver is enlarged an heterogeneous, measuring 22.5 cm in length. The liver is infiltrated by diffuse/multifocal metastatic disease. This is similar to before 2623 examination. There is no intrahepatic biliary ductal dilatation. Gallbladder: Unremarkable. Spleen: Normal in size and attenuation. There are calcified splenic granulomas. Pancreas: The unenhanced pancreas is grossly unremarkable. Adrenal glands: Unremarkable. Kidneys: The unenhanced kidneys demonstrate mild cortical atrophy and are without hydronephrosis. There are no renal calculi identified. There is no evidence of contour deforming renal mass lesion. Abdominal vasculature: The abdominal aorta is normal in course and caliber noting advanced atherosclerotic calcification. Bowel: There is postoperative change from sigmoid colon resection with colocolonic anastomosis. A small bowel anastomosis is seen in the right lower quadrant. There are distended and fecalized loops of small bowel above anastomosis which are mildly thick walled and measure up to 2.8 cm diameter (axial image #[id number]). The small bowel below the anastomosis is decompressed, and a partial obstruction is not excluded. There is mild colonic diverticulosis without CT evidence of acute diverticulitis. Mild wall thickening suggested throughout the colon. The appendix is well-visualized and normal. Peritoneum: There is a moderate volume of abdominopelvic ascites. No intraperitoneal free air is seen. Lymphadenopathy: None. Pelvic viscera: The bladder is decompressed and grossly unremarkable. The uterus is surgically absent. No adnexal lesion is seen. Skeletal structures: The skeletal structures are heterogeneously osteopenic. 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 Represent a lesions are seen in the body of T11 on image #103, the body of L5 on image #259, and the left iliac wing on image #259, and in the medial right ilium on image #277. IMPRESSION: 1. There are distended and thick-walled loops of fecalized small bowel in the pelvis. An apparent transition point is seen at a small bowel anastomosis in the right midabdomen, and the distal small bowel is decompressed. Differential considerations include a nonspecific enteritis and/or a partial small bowel obstruction. A small bowel obstruction is favored and clinical correlation will be essential. 2. The liver is enlarged and infiltrated by diffuse hepatic metastatic disease. This is similar in appearance date 12/07/2022 PET examination. 3. 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 4. Moderate volume of abdominopelvic ascites. This has increased from previous. 5. There is mild wall thickening and edema suggested throughout the colon. This could be due to hepatic dysfunction/fluid overload. Correlate clinically for evidence of a nonspecific colitis. 6. Additional findings as above. KUB 12/27/2022 CLINICAL HISTORY: Generalized abdominal pain. FINDINGS: 2 AP, portable, supine abdominal radiographs are correlated with abdominal CT dated 12/26/2022. Suture material and surgical clips project over the lower abdomen and pelvis. There is no radiographic evidence of high-grade bowel obstruction. Increased density throughout the abdomen likely corresponds to ascites. There are calcific granulomas in the spleen. The skeletal structures are osteopenic and appear intact. IMPRESSION: 1. There is no radiographic evidence of high-grade bowel obstruction. Findings of possible enteritis and/or partial small bowel obstruction seen on yesterday's CT scan are not well assessed by x-ray. 3. Increased density throughout the abdomen likely represents ascites. (3) Ascites Ascites type: malignant Qualified Code(s): R18.0 - Malignant ascites (5) Neutropenia Neutropenia type: unspecified Qualified Code(s): D70.9 - Neutropenia, unspecified (6) Abdominal pain Abdominal location: generalized Qualified Code(s): R10.84 - Generalized abdo evert pain
[2022-12-27] MEDS ORDERED: ONDANSETRON INJ 2 MG/ML 2 ML VIAL IV PRN (14:00)
[2022-12-27] MEDS ORDERED: MoRPHine SULFATE 2 MG/ML CARP IV PRN (14:00)
[2022-12-27] MEDS ORDERED: MoRPHine SULFATE 4 MG/ML 1 ML CARP\\VIAL IV PRN (14:00)
--- NOTE | 2022-12-27 14:46 | Ultrasound Report ---
Ultrasound-guided paracentesis INDICATION: Ascites PROCEDURE: Procedure and risks were explained. Informed consent obtained. A final timeout was complet ed. A pocket of ascites was identified in the right upper quadrant. The abdomen was prepped and drape d in sterile fashion. 1% buffered lidocaine was utilized for skin anesthesia. Utilizing ultrasound guidance, a 5 [place]ian safety centesis catheter was advanced into the pocket of as citekapil. Ultrasound images were obtained. A total of 2.3 L of cloudy yellow ascites fluid was removed, with 1 L sent to the lab for analysis. The catheter was removed and Band-Aid applied. The patient skye erated the procedure well. Vital signs will be monitored post procedure. IMPRESSION: Ultrasound-guided paracentesis as above. Performed, dictated, and signed by Shant Goldman PA-C; to be co-signed by Dr. Flako Bruner. Electronically signed by: Flako Bruner M.D. 12/27/2022 6:33 PM
--- NOTE | 2022-12-27 15:22 | Palliative Care Consultation ---
Date of Consultation December 27, 2022 Assessment & Plan (1) Palliative care by specialist: Met with pt/family. Provided overview of Palliative Medicine, a subspecialty that provides specialized medical care for people living with a serious illness by offering a focus on quality of life. Palliative Medicine is often conflated with hospice: I advised patient/family that Palliative and hospice can be partners but we are not the same. It is important to understand the difference so that we may be informed, and not afraid. Palliative Medicine works to improve QOL through reduction of symptom burden/more control over their illness, for both the patient and family. Palliative medicine clinicians are board certified, specially-trained and another member of the patient's medical care team. We often provide an extra layer of support because our care is based on the needs of the patient, not the prognosis; as such, it's appropriate at any age/advancing stage of a serious illness and can be provided along with curative treatment. Palliative Medicine clinicians are also trained in advanced communication methodologies, to facilitate complex discussions about advanced illness planning, which are needed to help assure that the treatment choices match the patient's goals, aka delivering Goal Concordant care. Finally, we discussed that hospice is a visiting nurse service that focuses on care delivered at the very end of life for patients with terminal illness, with life expectancy less than 6 month. (2) Advanced care planning/counseling discussion: Met with and pt son at bedside for face to face 65min discussion, joined last 15min by dtr in law. We reviewed that all chronic/progressive disease has a declining trajectory over time where facets of patient self-identity and independence are lost. Every acute event leads to a further decline, resulting- many times, in a new baseline. Advised that the greatest priority is to determine what matters most to pt, then family and to develop a plan of care that is aligned with those priorities. We reviewed that Advance illness planning conversations are conducted to review goals and expectations, support shared decision-making, and engage in disease specific advance care planning. This type of advance care planning is sometimes referred to as 'preparedness planning. It is used to review the risks and benefits of offered therapy, elicit and deepen understanding of the underlying illness and therapeutic options, ensure adequate psychosocial support, address existential concerns and coping, and engage in end-of-life planning. Preparedness planning is not meant to replace informed consent discussions. Palliative medicine plays a role in the process of deepening a patients understanding of this specific medical intervention and ensuring this treatment aligns with their goals of care remains a central tenet of the planning conversation. We had a detailed and lengthy conversation about the overall course of progression of patient's cancer. and son shared that she has been in a steady state of decline for several weeks. She has not been eating much at all for the last few weeks but in the last 2 weeks has had little to no intake. She has been getting progressively weaker and more dependent on her for care. She has complained of some mild abdominal pain. She has become increasingly confused and lethargic since arrival to the emergency room. Today she is really not able to answer any questions or follow commands. She repeatedly states "I am fine." Family shared that they are aware she has an incurable cancer. They are also aware that the chemo is palliative in nature with goal of control the disease and prolong her life. They feel that the current state of complications with her rapid decline are likely related to an overall poor prognosis. Son feels that he would not want her to have any prolong suffering and has begun to wonder about the validity of placing her on life support. We then talked about the data that surround CPR survival as follows: Only about 10% of patients who have [id number] sudden cardiac arrest survive to hospital discharge, with many survivors having neurologic impairment. This rate is even lower among patients with serious coexisting conditions, ie chance of survival to hospital discharge for in-hospital CPR in older people is low to moderate (15%) and decreases with age, comorbidities, performance status and frailty: for pts > 70 yo, more than half of the patients who initially survived resuscitation in the hospital before hospital discharge. The pooled survival to discharge after in-hospital CPR was 18% for patients between 70 and 79 years old, 15% for patients between 80 and 89 years old and 11% for patients of 90 years and older. (Davie DORANY, Sabas LJ, Aretha F, et al. Trends in short- and long-term survival among [id number] cardiac arrest patients alive at hospital arrival. Circulation 2014;130:7538-7281. AND Grace C, Padmini T, Mayda R, et al. Performance of clinical risk scores to predict mortality and neurological outcome in cardiac arrest patients. Resuscitation 2019;136:21-29.) Patient's and her son are in agreement she would not want to be resuscitated or placed on life support in the event of a natural . They understand that her terminal cancer be the likely cause of any end-of-life event and did not want to prolong this with artificial beats. We reviewed that this is in line with a CODE STATUS preference of DNR/DNI. They are in agreement and verbalized understanding. CODE STATUS was changed to reflect their wishes and patient is now DNR/DNI. Family are aware that her prognosis is guarded. They understand that therapies may not help turn this around although they remain hopeful that she may have some improvement to at least allow her to return home and have some time with them. They understand that she is likely not a candidate for further chemotherapy. (3) Neutropenia: Neutropenia type: unspecified Qualified Code(s): D70.9 - Neutropenia, unspecified (4) Lactic acidosis: (5) Breast cancer: (6) Ascites: Ascites type: malignant Qualified Code(s): R18.0 - Malignant ascites (7) Chronic kidney disease, stage 3b: (8) Fistula: (9) Abdominal pain: Abdominal location: generalized Qualified Code(s): R10.84 - Generalized abdominal pain Plan Advance care planning conversation as outlined above. CODE STATUS changed to DNR/DNI and alignment and preferences with patient and family. We will continue to closely follow. Patient's and son would like to meet with Dr. Peters later today to discuss the overall prognosis of her cancer. Palliative medicine will continue to follow this patient. Thank you for allowing us to participate in the ongoing care of this patient. Please don't hesitate to call or page with any additional concerns. Dr. 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 Presented to emergency department from PCP office due to dehydration, hypotension, and decreased urine output. Found to be severely neutropenic, with MARISA with creatinine at 3.0 , and elevated lactic acidosis; neutropenia, MARISA, recent paracentesis, concern for possible SBP. Recent platelet transfusion at [facility] (12/16/22) and recent paracentesis with removal of 4.0 liters of ascitic fluid on 12/20/22. CT with possible early partial SBO vs enteritis. KUB today showing no signs of obstruction. Per Dr Cruz's concise Nephrology consult: "Lactic acidosis: with hyperkalemia; in setting of hyperkalemia, hyperphosphatemia concerning for dying tissue >> again concern for enteritis/partial SBO. Changes are too far out from 12/12 chemo treatment to be c/w tumor lysis" Allergies Allergy/AdvReac Type Severity Reaction Status Date / Time acetaminophen Allergy Intermediate Hives Verified 12/26/22 16:35 sertraline Allergy Intermediate groggy Verified 12/26/22 16:35 Home Medications Medication Instructions Recorded Confirmed Type lorazepam 0.5 mg tablet (Ativan) 0.5 mg PO DAILY PRN anxiety before 12/27/21 12/26/22 Rx doctors appointments #20 tabs multivitamin 1 tab PO QAM 12/27/21 12/26/22 History furosemide 20 mg tablet (Lasix) 20 mg PO QAM 12/09/22 12/26/22 History olanzapine 2.5 mg tablet See Rx Instructions PO .COMPLEX 12/09/22 12/26/22 Rx #30 tabs ondansetron HCl 8 mg tablet 8 mg PO Q8H PRN nausea and 12/09/22 12/26/22 Rx vomiting #90 tabs prochlorperazine maleate 10 mg 10 mg PO QID PRN nausea and 12/09/22 12/26/22 Rx tablet vomiting #90 tabs losartan 50 mg tablet 50 mg PO HS #90 tabs 12/23/22 12/26/22 Rx tramadol 50 mg tablet 50 mg PO BID PRN Pain 12/26/22 12/26/22 History zolpidem 5 mg tablet (Ambien) 5 mg PO HS 12/26/22 12/26/22 History Patient History Medical History (Updated 12/27/22 @ 15:11 by Radha Florence DNP) Advanced care planning/counseling discussion Ascites paracentesis dependent spring 2022 Breast cancer stage 4 w/ liver mets Chronic kidney disease, stage 3b new as of November 2022 Depression with anxiety Diverticular disease s/p sigmoid colectomy History of anemia Hx of colonic polyp Polyp removed Dr. Solares Benign age 46 Hx of peptic ulcer Hypertension Infiltrating ductal carcinoma of right breast Palliative care by specialist Peripheral neuropathy Raynauds disease Surgical History (Updated 12/27/22 @ 10:11 by Jennifer Cruz MD, PhD) H/O lumpectomy Right lumpectomy with right SNL biopsy and axillary lymph node biopsy Per pt no limb restrictions H/O oral surgery root canals H/O total hysterectomy History of abdominal surgery 01/2022 sigmoid colectomy and ileostomy creation to address L iliacus/sigmoid colon/vaginal fistula and diverticulitis 04/2022 ileostomy reversal History of breast biopsy right History of colonoscopy History of dilatation and curettage History of esophagogastroduodenoscopy (EGD) History of removal of Port-a-Cath (03/26/21) Access Port Removal Dr. Pastor 03-26-2021 History of reversal of ileostomy 05/2022 @ [facility] Nausea and vomiting after administration of anesthetic agent Port-A-Cath in place (11/04/19) Insertion of Mediport Left Internal Jugular Vein Dr. Pastor 11-04-19 Family History Sister Hypertension Thyroid disorder Father Alcoholism History of pneumonia from pneumonia age 50s aspiration pneumonia Sister Thyroid disorder Mother Sudden , Onset Age: 75 unsure the cause Other No family history of adverse response to anesthesia Denies family history of Ovarian cancer Prostate cancer Breast cancer Lung cancer Colorectal cancer Social History Smoking Status: Unknown if ever smoked Tobacco Type: Cigarettes Second Hand Exposure: No; Do You Dip or Chew Tobacco: No; Preferred Language: Syriac Communication Ability: Impaired Visual Impairment: No Limitations Hearing Ability: Use of Hearing Aid Kiln Remover Required: No Beliefs That Will Affect Care: None marital status: Current Living Situation: Other Current Living Situation Comment: unknown- pt confused, no family at bedside current occupational status: employed 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 Lying on her side in bed. Baseline confused. Lethargic. Oral membranes are dry. Dentition is intact. Respiratory effort normal. No increased effort noted. No respiratory distress noted. Abdomen with moderate distention, mild tenderness bilaterally and lower abdominal regions, grimacing noted. There is some guarding noted throughout. Ascites is palpable. Skin is otherwise pale and dry. There are areas of tightening noted. Patient is arousable to her name but unable to follow commands or answer questions appropriately. She is not intact from a decisional perspective. Results & Data Vital Signs (Past 12 Hours) Vital Signs Temp Pulse Resp BP BP Pulse Ox O2 Del Method 12/27/22 12:00 36.8 C 114 H 16 115/63 96 Room Air 12/27/22 08:00 Room Air 12/27/22 08:00 36.9 C 120 H 19 109/63 Room Air 12/27/22 03:32 36.4 C L 116 H 20 119/72 94 Room Air Laboratory Results data reviewed platelets trending back down today 145 WBC 0.67 from yesyerday 0.90 Diagnostic Findings KUB 12/27/22: 1. There is no radiographic evidence of high-grade bowel obstruction. Findings of possible enteritis and/or partial small bowel obstruction seen on yesterday's CT scan are not well assessed by x-ray. 3. Increased density throughout the abdomen likely represents ascites. CT head 12/26/22: There is no hemorrhage, mass effect, or evidence of acute territorial ischemia by CT criteria. Paracentesis 12/20/22: Utilizing ultrasound guidance, a 5 [place]ian safety centesis catheter was advanced into the right upper quadrant pocket of ascites. Ultrasound images were obtained. Approximately 4.1 L of yellow ascites fluid was removed with 1 L sent to lab for analysis. The catheter was removed and Band-Aid applied. The patient tolerated the procedure well. Vital signs will be monitored on the floor postprocedure. PG Care Time/CCT Total # of Minutes Spent Total Time Spent: 110 Total Time Spent with Patient: Total time spent is greater than 50% in coordination of care (as documented) at patient's floor/unit and/or counseling patient: I spent 110 minutes overall addressing this case: 10 in medical data review/discussion with referring provider(s) and/or preparation for the visit 15 in direct interaction with the patient 66 Advance Care Planning/Goals of Care discussions as detailed above in note (must be >16min) 10 in subsequent review and synthesis of assessment and plan 10 in communicating with other providers regarding the patient's case: primary team, nursing, oncology Prolonged Care Time Prolonged Care Time: Yes Advanced Care Planning 81048 Advanced Care Planning 30 Min 94139 Advanced Care Planning Additional 30 [place] [address] IN/OBS CONSULT LVL 5,80M Patient Type New History Comprehensive Exam Comprehensive Medical Decision Making High Complexity Diagnoses Palliative care by specialist Z51.5 Advanced care planning/counseling discussion Z71.89 Neutropenia D70.9 Neutropenia type: unspecified Lactic acidosis E87.20 Breast cancer C50.919 Ascites R18.0 Ascites type: malignant Chronic kidney disease, stage 3b N18.32 Fistula L98.8 Abdominal pain R10.84 Abdominal location: generalized Additional Codes Advanced Care Planning - 48681 Advanced Care Planning 30 Min: 91800 Advanced Care Planning 30 Min ([id number]) Advanced Care Planning - 80216 Advanced Care Planning Additional 30 Min: 47326 Advanced Care Planning Additional 30 Min ([id number]) Prolonged Care Time - Prolonged Care Time: Yes ([id number])
[2022-12-27 15:48] LABS: Albumin Peritoneal Fluid < 1.5 gm/dl; Amylase Peritoneal Fluid 15 U/L
[2022-12-27 15:54] LABS: Glucose Peritoneal Fluid 137 mg/dl; LDH Peritoneal Fluid 101 U/L; Lipase Peritoneal Fluid 65 U/L; Total Protein Peritoneal Fluid < 3.0 gm/dl
--- NOTE | 2022-12-27 16:06 | Oncology Consultation ---
Date of Consultation December 27, 2022 Assessment & Plan (1) Breast cancer, stage 4: (2) Abdominal distension: (3) MARISA (acute kidney injury): (4) Neutropenia: (5) Ascites: Plan Very pleasant female who was recently diagnosed with stage IV breast cancer for which she recently started palliative chemotherapy treatment with carboplatin/gemcitabine. -Declining performance status likely multifactorial due to extensive metastatic disease, recent chemotherapy treatments, dehydration from poor oral intake and possible infection. I had an extensive discussion today with the patient's family. Although prior to treatment her performance status was not great, her performance status has significantly declined since then. Explained to them that unless performance status improves , she would not be a candidate for further treatment. However, if performance status improves with current treatment over the next 24 to 48 hours, would reconsider restartingTreatment. Agree with palliative care consult to discuss goals of care -Agree with broad-spectrum IV antibiotics while awaiting results from infectious work-up as well as while neutropenic -Recommend filgrastim 480 mcg daily x3 days for severe neutropenia. Abdominal findings on imaging possibly due to neutropenic enterocolitis. If performance status improves, will incorporate G-CSF to treatment regimen and also dose reduced chemotherapy Thank you for this consult. Oncology will continue following while in the hospital. Please feel free to call if you have any further questions History of Present Illness Reason for Consultation: Metastatic breast cancer Attending Physician: Aristeo Reagan History of Present Illness Ms. Barrientos is a very pleasant 67-year-old female with history of stage III right breast cancer s/p neoadjuvant chemotherapy with dose dense AC-T followed by lumpectomy, adjuvant radiation treatment and anastrozole which she remained on up until more recently when she was diagnosed with metastatic breast cancer. She started palliative chemotherapy treatment with gemcitabine/carboplatin on 12/06/2022 and received cycle 1, day 8 of treatment on 12/22/2022. She presented to the ER at [facility] with altered mental status and generalized weakness. On arrival to the ER, she was noted to be hypotensive. Labs revealed leukopenia with white cell count of 0.9 and ANC of 0.2. She was also found to have lactic acidosis, MARISA with creatinine of 3 and BUN of 73. She was started on IV fluids, placed on broad-spectrum antibiotics. CT abdomen and pelvis on 12/26/2022 revealed distended and thick walled loops of fecalized small bowel in the pelvis concerning for nonspecific enteritis and/or partial small b owel obstruction. Also noted on CT scan was enlarged liver with diffuse hepatic metastatic disease, multifocal osteolytic metastatic disease, moderate volume of abdominal ascites as well as mild wall thickening and edema throughout the colon. During my evaluation of patient today, she appeared very weak and lethargic. Could not answer most of my questions. However, her [id number] states that she was noted to have poor oral intake, fatigue and generalized weakness shortly after receiving cycle 1 day 8 of treatment Allergies Allergy/AdvReac Type Severity Reaction Status Date / Time acetaminophen Allergy Intermediate Hives Verified 12/26/22 16:35 sertraline Allergy Intermediate groggy Verified 12/26/22 16:35 Home Medications Medication Instructions Recorded Confirmed Type lorazepam 0.5 mg tablet (Ativan) 0.5 mg PO DAILY PRN anxiety before 12/27/21 12/26/22 Rx doctors appointments #20 tabs multivitamin 1 tab PO QAM 12/27/21 12/26/22 History furosemide 20 mg tablet (Lasix) 20 mg PO QAM 12/09/22 12/26/22 History olanzapine 2.5 mg tablet See Rx Instructions PO .COMPLEX 12/09/22 12/26/22 Rx #30 tabs ondansetron HCl 8 mg tablet 8 mg PO Q8H PRN nausea and 12/09/22 12/26/22 Rx vomiting #90 tabs prochlorperazine maleate 10 mg 10 mg PO QID PRN nausea and 12/09/22 12/26/22 Rx tablet vomiting #90 tabs losartan 50 mg tablet 50 mg PO HS #90 tabs 12/23/22 12/26/22 Rx tramadol 50 mg tablet 50 mg PO BID PRN Pain 12/26/22 12/26/22 History zolpidem 5 mg tablet (Ambien) 5 mg PO HS 12/26/22 12/26/22 History Patient History Medical History (Updated 12/27/22 @ 15:11 by Radha Florence DNP) Advanced care planning/counseling discussion Ascites paracentesis dependent spring 2022 Breast cancer stage 4 w/ liver mets Chronic kidney disease, stage 3b new as of November 2022 Depression with anxiety Diverticular disease s/p sigmoid colectomy History of anemia Hx of colonic polyp Polyp removed Dr. Solares Benign age 46 Hx of peptic ulcer Hypertension Infiltrating ductal carcinoma of right breast Palliative care by specialist Peripheral neuropathy Raynauds disease Surgical History (Updated 12/27/22 @ 10:11 by Jennifer Cruz MD, PhD) H/O lumpectomy Right lumpectomy with right SNL biopsy and axillary lymph node biopsy Per pt no limb restrictions H/O oral surgery root canals H/O total hysterectomy History of abdominal surgery 01/2022 sigmoid colectomy and ileostomy creation to address L iliacus/sigmoid colon/vaginal fistula and diverticulitis 04/2022 ileostomy reversal History of breast biopsy right History of colonoscopy History of dilatation and curettage History of esophagogastroduodenoscopy (EGD) History of removal of Port-a-Cath (03/26/21) Access Port Removal Dr. Pastor 03-26-2021 History of reversal of ileostomy 05/2022 @ [facility] Nausea and vomiting after administration of anesthetic agent Port-A-Cath in place (11/04/19) Insertion of Mediport Left Internal Jugular Vein Dr. Pastor 11-04-19 Family History Sister Hypertension Thyroid disorder Father Alcoholism History of pneumonia from pneumonia age 50s aspiration pneumonia Sister Thyroid disorder Mother Sudden , Onset Age: 75 unsure the cause Other No family history of adverse response to anesthesia Denies family history of Ovarian cancer Prostate cancer Breast cancer Lung cancer Colorectal cancer Social History Smoking Status: Unknown if ever smoked Tobacco Type: Cigarettes Second Hand Exposure: No; Do You Dip or Chew Tobacco: No; Preferred Language: Yoruba Communication Ability: Impaired Visual Impairment: No Limitations Hearing Ability: Use of Hearing Aid Pharmaceutical Sales Representative Required: No Beliefs That Will Affect Care: None marital status: Current Living Situation: Other Current Living Situation Comment: unknown- pt confused, no family at bedside current occupational status: employed 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 Safe at Home: Yes Childhood Exposure to Second-Hand Smoke: No Diet: regular Seatbelt Use: always Sunscreen Use: Yes Assistive Devices: None Assistive Devices Comment: unknown- pt confused, no family at bedside Review of Systems Review of Systems: Unobtainable due to cognitive status Results & Data Vital Signs (Past 12 Hours) Vital Signs Temp Pulse Resp BP Pulse Ox O2 Del Method 12/27/22 12:00 36.8 C 114 H 16 115/63 96 Room Air 12/27/22 08:00 Room Air 12/27/22 08:00 36.9 C 120 H 19 109/63 Room Air (4) Neutropenia Neutropenia type: unspecified Qualified Code(s): D70.9 - Neutropenia, unspecified (5) Ascites Ascites type: malignant Qualified Code(s): R18.0 - Malignant ascites
[2022-12-27 16:29] LABS: Appearance Peritoneal Fluid Hazy; Color Peritoneal Fluid Yellow; RBC Peritoneal Fluid Auto < 2000 /uL; WBC Peritoneal Fluid Auto 26 /ul (0-300)
[2022-12-27 16:32] LABS: BUN Creatinine Ratio 23.9 (10-20); Calcium 7.7 mg/dl (8.6-10.3); Creatinine Clr Calc Pharmacy 18.9 ml/min; Est GFR (African American) 19.2 ml/min; Est GFR (Non-African American) 16.6 ml/min; Potassium 4.7 mmol/L (3.5-5.1)
[2022-12-27 17:03] LABS: Lymphocytes, Fluid 13 %; Mono,Macrophage,Mesothelial 80 %; Neutrophils, Fluid 7 %
[2022-12-27] MEDS ORDERED: MIDODRINE HCL 2.5 MG TAB PO STA (18:08)
[2022-12-27] MEDS: ZOLPIDEM TARTRATE 5 MG TAB PO SCH (20:33)
--- NOTE | 2022-12-27 21:52 | Hospitalist Progress Note ---
Date of Service December 27, 2022 Assessment & Plan (1) Neutropenia: Plan: 67 yo female with neutropenia and lactic acidosis in the setting of dehydration with past medical history of stage 4 breast cancer Concern over SBO. Repeat imaging does not show signs of complete SBO, perhaps partial, will continue with bowl rest. will keep NPO. continue IVF: but now on bicarb drip. Continue empiric antibiotics. will repeat blood work. Nephro brought up the concern that patient may have pulmonary emboli, howevery herclinical deterioration either from neutropenia, proviking possible sespsis, to her MARISA and dehydration could also be rovoking her tachycardia. Wells criteria could be considered moderate to unlikely. Ordered lower extremity doppler, this was negative for DVT. Given that patient is not requiring oxygen, will hold off further studies as not currently concerned for pulmonary emboli. D-dimer in this case will hold no value if positive given her clincial situation. (2) Cancer of liver: Plan: stage 4 breast cancer to liver. overall poor prognosis, consulted palliative care, will see how patient progresses over next 48 hours. Code status switched to DNR/DNR Given her meatbolic acidosis, MARISA, lethargy, advanced cancer, and overall clinical deterioration, patient is carrying a poor prognosis. (3) Abdominal pain: Plan: likely due to malignancy may also have SBP, obtained paracenthesis. This was negative as WBC was low. \ (4) Acute dehydration: Plan: placed on IVF. Patient with lactic acidsosis, this may be type b lactic acidosis. Now on bicarb drip. (5) Abnormal LFTs: Plan: will continue to monitor LFTs (6) Ascites: Plan: may need paracenthesis. (7) Hypertension: Plan: will hold bp meds (8) MARISA (acute kidney injury): Plan: Acute kidney failure on CKD stage 3 creatinine increased to 3, mildly improving. Continue IVF. Patient with acute anion gap metabolic acidosis with respiratory compensation. Bicarbonate is low, will replace. Patient also has hyperkalemia, this is likely secondary to the acid base disorder. alyssa be reviewing blood work and monitor Admission and Anticipated Discharge Date Admission Date: December 26, 2022 Subjective Patient appears lethargic. Review of Systems Review of Systems: Unobtainable due to cognitive status Physical Exam Constitutional: + ill appearing and average body habitus lethargic Eyes: PERRL, conjunctivae normal, anicteric sclerae ENMT: external ear and nose normal, oropharynx normal Neck: trachea midline, no thyromegaly Respiratory: normal respiratory effort, lungs clear to auscultation Cardiovascular: Rate/Rhythm: regular rate and + tachycardic Gastrointestinal (Abdomen): Inspection/Auscultation: + abdomen distended Percussion/Palpation: + abdomen tender (throughout), abdomen soft and + ascites; no guarding Musculoskeletal: Head/Neck/Chest: normocephalic Neurologic: + obtunded Lymphatic: no cervical or axillary lymphadenopathy Results & Data Results & Data Vital Signs (Past 12 Hours) Vital Signs Temp Pulse Resp BP Pulse Ox Pulse Ox O2 Del Method 12/27/22 19:48 Room Air 12/27/22 19:12 36.4 C L 112 H 19 93/52 L 96 Room Air 12/27/22 17:02 110 H 20 97/64 L 100 Room Air 12/27/22 16:30 109 H 20 93/62 L 98 Room Air 12/27/22 16:14 109 H 20 93/61 L 94 Room Air 12/27/22 15:55 36.8 C 109 H 20 86/59 L 94 Room Air 12/27/22 15:40 109 H 20 102/58 L 92 Room Air 12/27/22 15:57 94 12/27/22 15:25 36.7 C 112 H 20 121/52 L 94 Room Air 12/27/22 12:00 36.8 C 114 H 16 115/63 96 Room Air O2 Del Method 12/27/22 19:48 12/27/22 19:12 12/27/22 17:02 12/27/22 16:30 12/27/22 16:14 12/27/22 15:55 12/27/22 15:40 12/27/22 15:57 Room Air 12/27/22 15:25 12/27/22 12:00 PG Care Time/CCT Total # of Minutes Spent Total Time Spent with Patient: Total time spent is greater than 50% in coordination of care (as documented) at patient's floor/unit and/or counseling patient: Coding Level of Care Code 40644 SUB INP/OBS CARE 3/50MIN Diagnoses Neutropenia D70.9 Neutropenia type: unspecified Cancer of liver C22.9 Liver malignancy type: unspecified liver malignancy Abdominal pain R10.84 Abdominal location: generalized Acute dehydration E86.0 Abnormal LFTs R79.89 Ascites R18.0 Ascites type: malignant Hypertension I10 MARISA (acute kidney injury) N17.9 (1) Neutropenia Neutropenia type: unspecified Qualified Code(s): D70.9 - Neutropenia, unspecified (2) Cancer of liver Liver malignancy type: unspecified liver malignancy Qualified Code(s): C22.9 - Malignant neoplasm of liver, not specified as primary or secondary (3) Abdominal pain Abdominal location: generalized Qualified Code(s): R10.84 - Generalized abdominal pain (6) Ascites Ascites type: malignant Qualified Code(s): R18.0 - Malignant ascites
[2022-12-27 23:37] LABS: BUN Creatinine Ratio 23.8 (10-20); Calcium 7.4 mg/dl (8.6-10.3); Creatinine Clr Calc Pharmacy 19.4 ml/min; Est GFR (African American) 19.8 ml/min; Est GFR (Non-African American) 17.1 ml/min; Potassium 4.1 mmol/L (3.5-5.1)
[2022-12-28] MEDS ORDERED: HYDROmorphone INJ 0.5 MG/0.5 ML SYR IV PRN (00:03)
[2022-12-28] MEDS ORDERED: ACETAMINOPHEN 1,000 MG/100 ML VIAL IV STA (00:04)
[2022-12-28] MEDS ORDERED: diphenhydrAMINE 50 MG/ML VIAL IV PRN (00:10)
[2022-12-28] MEDS: PIPERACILLIN/TAZOBACTAM 4.5 GM in DEXTROSE 5% 100 ML IV SCH ×2 (01:11→13:56)
[2022-12-28 06:23] LABS: Albumin Globulin Ratio 0.7 (0.9-2); Albumin Level 1.9 gm/dl (3.4-5.0); BUN Creatinine Ratio 22.7 (10-20); Bilirubin,Total 4.4 mg/dl (0.2-1.0); C Reactive Protein 23.86 mg/dl (0-0.5); Creatinine Clr Calc Pharmacy 19.1 ml/min; Est GFR (African American) 19.4 ml/min; Est GFR (Non-African American) 16.7 ml/min; Globulin 2.6 gm/dl (2.5-4.0); Potassium 4.1 mmol/L (3.5-5.1); Total Protein 4.5 gm/dl (6.0-8.3)
[2022-12-28 07:23] LABS: Base Excess VBG -6.7 mEq/L; HCO3 VBG 17 mmol/L; Oxygen Saturation VBG 65.1 %; PCO2 VBG 30 mmHg (38-50); PO2 VBG 41 mmHg; pH VBG 7.37 (7.36-7.41)
--- NOTE | 2022-12-28 08:23 | Hospitalist Progress Note ---
Date of Service December 28, 2022 Assessment & Plan (1) Neutropenia: Plan: 67 yo female with neutropenia and lactic acidosis in the setting of dehydration with past medical history of stage 4 breast cancer Concern over SBO seen on CT abdomen on admission , kub supports parital SBO. Continue empiric antibiotics Zosyn, consider mrsa coverage if not improved discussion of TPN by surgery but not treating underlying issue of metastatic breast cancer given neupogen starting 12/26/22, wbc improving but still neutropenic Nephro brought up the concern that patient may have pulmonary emboli, however her clinical deterioration either from neutropenia, provoking possible sepsis, to her MARISA and dehydration could also be provoking her tachycardia. Wells criteria could be considered moderate to unlikely. Ordered lower extremity doppler, this was negative for DVT. D-dimer in this case will hold no value if positive given her clinical situation given degree of inflammation from other medical issues . (2) Breast cancer metastasized to liver: Plan: stage 4 breast cancer to liver. overall poor prognosis, consulted palliative care, Code status switched to DNR/DNR pain from mets and partal sbo, possible SBP, paracentesis of 2.3 L bloody fluid . INR is elevated transaminitis, likely from metastatic disease (3) MARISA (acute kidney injury): Plan: Acute kidney failure on CKD stage 3 creatinine increased no hydro seen on CT to consider extrinsic compression Patient with acute anion gap metabolic acidosis with respiratory compensation. Nephrology restarted bicarbonate containing ivf (4) Goals of care, counseling/discussion: Plan: pts famiily is at the bedside they are updated and discussion of how ill this pt is, will continue supportive care. Gen surgery did discuss TPN, I am not sure this is the best idea as we are not treating issue that has caused parital sbo which would seem to be her metastatic cancer, and or her liver mets, as she has a rising INR Admission and Anticipated Discharge Date Admission Date: December 26, 2022 Subjective Patient is awake she is confused she is now with discomfort in the right upper quadrant consistent with areas where her metastatic breast cancer to liver is elevated INR with suggestion of synthetic liver dysfunction Patient receiving Neupogen Renal dysfunction is acutely worsened but chronically stable Physical Exam Physical Exam: Patient appears chronically ill Mucous membranes are dry Abdomen is NABS soft tender right upper quadrant Extremities are with trace edema Results & Data Results & Data Vital Signs (Past 12 Hours) Vital Signs Temp Pulse Pulse Resp BP BP Pulse Ox 12/28/22 02:43 97.5 F L 112 H 22 93/56 L 96 12/27/22 23:34 108 H 12/27/22 22:41 97.3 F L 111 H 20 94/60 L 99 O2 Del Method 12/28/22 02:43 Room Air 12/27/22 23:34 12/27/22 22:41 Room Air Laboratory Results reviewed cbc reviewed prp reviewed inr PG Care Time/CCT Total # of Minutes Spent Total Time Spent with Patient: Total time spent is greater than 50% in coordination of care (as documented) at patient's floor/unit and/or counseling patient: Coding Level of Care Code 65682 SUB INP/OBS CARE 3/50MIN Diagnoses Neutropenia D70.9 Neutropenia type: unspecified Breast cancer metastasized to liver C50.919; C78.7 MARISA (acute kidney injury) N17.9 Goals of care, counseling/discussion Z71.89 (1) Neutropenia Neutropenia type: unspecified Qualified Code(s): D70.9 - Neutropenia, unspecified
[2022-12-28 09:18] LABS: Hematocrit (blood only) 24.6 % (37.0-47.0); Hemoglobin 9.4 g/dl (12.0-16.0); Mean Corpuscular Hemoglobin 29.7 pg (25.0-34.0); Mean Corpuscular Hgb Conc 38.2 g/dL (32.0-36.0); Mean Corpuscular Volume 77.8 fL (80.0-100.0); Mean Platelet Volume 10.6 fL (9.4-12.4); Platelet Count 83 K/uL (130-400); RDW Coefficient of Variation 22.1 % (11.5-14.5); RDW Standard Deviation 47.6 fL (36.4-46.3); Red Blood Count 3.16 M/uL (4.20-5.40); White Blood Count 2.35 K/ul (4.8-10.8)
[2022-12-28 09:23] LABS: ALC (manual) 1.86 K/uL (1.2-3.4); Anisocytosis Present; Basophils # (manual) 0.02 K/uL (0-0.2); Basophils % (manual) 1 %; Eosinophils # (manual) 0.02 K/uL (0-0.50); Eosinophils % (manual) 1 %; Lymphocytes # (manual) 1.86 K/uL (1.2-3.4); Lymphocytes % (manual) 79 %; Macrocytosis Present; Monocytes # (manual) 0.05 K/uL (0.11-0.59); Monocytes % (manual) 2 %; Neutrophils % (manual) 17 %; Target Cells 2+
[2022-12-28] MEDS: FILGRASTIM 480 MCG/1.6 ML VIAL SC SCH (09:33)
[2022-12-28] MEDS ORDERED: PLASMA-LYTE A 1,000 ML IV SCH (10:00)
[2022-12-28] MEDS: MIDODRINE HCL 2.5 MG TAB PO SCH ×3 (10:30→19:25)
--- NOTE | 2022-12-28 11:33 | Nephrology Progress Note ---
Date of Service December 28, 2022 Assessment & Plan (1) MARISA (acute kidney injury): Plan: plateau'd stage 2 MARISA on rapidly progressive CKD as below. Presenting creatinine 3; baesline creatinine 1.5. She was hypotensive for several hours on the day of admission; may also have been complicated by recent paracentesis > unclear if albumin was given or if losartan held >daily bmp -cont to avoid nephrotoxins, nsaids, IV contrast; she should not resume losartan -no indication for emergent dialysis but significant risk to need it at some point -strict I/O (2) Lactic acidosis: Plan: with hyperkalemia; in setting of hyperkalemia, hyperphosphatemia concerning for dying tissue >> again concern for enteritis/partial SBO. Changes are too far out from 12/12 chemo treatment to be c/w tumor lysis >consider veltassa when taking po >>>>>changed plasmalyte to isotonic bicarb rich fluid > 1/2 NS w/ 75 mEq /L sodium bicarb at 100 ml/hr (same rate) >continue antibiotics and neutropenic sepsis work up > cxs NGTD; concern for neutropenic enterocolitis >daily BMP (3) Chronic kidney disease, stage 3b: Plan: no CKD fall 2021 or prior. now spring 2022 with CKD 3B. (?what transpired clinically in [place] where she spent the winter) -may need nephro f/u at d/c depending on disp Admission and Anticipated Discharge Date Admission Date: December 26, 2022 Subjective marked /worsening transaminitis; still confused; not able to give ROS Review of Systems Review of Systems: Unobtainable due to reduced consciousness Physical Exam Constitutional: well developed, + acute distress (mild w/ intermittent moaning), + ill appearing, + cachectic and + malnourished Eyes: EOM intact bilaterally ENMT: Ears: no external ear abnormality Nose: no external nose abnormality Mouth: + dry oral mucous membranes Neck: no nuchal rigidity Respiratory: normal respiratory effort Auscultation: + diminished lung sounds Cardiovascular: Rate/Rhythm: regular rate and regular rhythm Extremities: no edema Gastrointestinal (Abdomen): Inspection/Auscultation: normal bowel sounds Percussion/Palpation: abdomen soft; abdomen nontender Musculoskeletal: Extremities: strength 5/5 throughout Skin: no rashes, warm and dry Results & Data Vital Signs (Past 12 Hours) Vital Signs Temp Pulse Pulse Resp BP Pulse Ox O2 Del Method 12/28/22 08:32 36.6 C 111 H 18 104/63 96 Room Air 12/28/22 02:43 36.4 C L 112 H 22 93/56 L 96 Room Air 12/27/22 23:34 108 H Laboratory Results 12/28/22 08:06 12/28/22 05:35
--- NOTE | 2022-12-28 11:41 | Surgery Progress Note ---
Date of Service December 28, 2022 Assessment & Plan (1) Breast cancer: (2) Chronic kidney disease, stage 3b: (3) Ascites: (4) Lactic acidosis: (5) Neutropenia: (6) Abdominal pain: (7) MARISA (acute kidney injury): Plan 67 year-old female with history of stage III right breast cancer s/p neoadjuvant chemotherapy, lumpectomy and SNLB in 2020 now with stage IV breast cancer to liver and bone. Presented to emergency department from PCP office due to dehydration, hypotension, and decreased urine output. Found to be severely neutropenic, with MARISA with creatinine at 3.0 , and elevated lactic acidosis. Recent platelet transfusion at [facility] (12/16/22) and recent paracentesis wi removal of 4.0 liters of ascitic fluid on 12/20/22. CT with possible early partial SBO vs enteritis. KUB 12/27/2022 showing no signs of obstruction. 12/28/2022 - afebrile - wbc increased to 2.35 (2 doses of Neupogen) - s/p paracentesis, fluid without increased WBCs culture showing no organisms but not finalized yet - abdomen is soft today, not complaining of pain but ROS very limited Plan: Continue IV antibiotics given neutropenia Would continue conservative management with bowel rest for now Would consider PICC line for PPN given severe malnutrition and poor nutritional status in last few weeks Continue medical management Dr. Christie has seen and examined pt, agrees with above. Admission and Anticipated Discharge Date Admission Date: December 26, 2022 Subjective limited ROS, at bedside , states she was doing okay this morning was smiling, now tired and sleepy. Patient doesn't answer much questions, states she is having abdominal pain but not as severe. not passing any gas or bowel movement per that he is aware no n,v Physical Exam Constitutional: + thin, + cachectic, + frail appearing and + lethargic; no acute distress ENMT: Mouth: + dry oral mucous membranes Respiratory: normal respiratory effort; no respiratory distress and no labored breathing Gastrointestinal (Abdomen): Inspection/Auscultation: abdomen normal to inspection and + abdominal surgical scar; abdomen not distended Percussi on/Palpation: abdomen soft; abdomen nontender, no guarding and abdomen not rigid Skin: no rashes, warm and dry Psychiatric: Orientation: alert Eye Contact: + poor eye contact Results & Data Vital Signs (Past 12 Hours) Vital Signs Temp Pulse Resp BP Pulse Ox O2 Del Method 12/28/22 08:32 36.6 C 111 H 18 104/63 96 Room Air 12/28/22 02:43 36.4 C L 112 H 22 93/56 L 96 Room Air Laboratory Results 12/28/22 12/28/22 12/28/22 Range/Units 11:19 11:19 08:06 WBC 2.35 L RBC 3.16 L Hgb 9.4 L Hct 24.6 L MCV 77.8 L D MCH 29.7 MCHC 38.2 H RDW Std Deviation 47.6 H RDW Coeff of Moon 22.1 H Plt Count 83 L MPV 10.6 Immature Gran % (Auto) Neut % (Auto) Lymph % (Auto) Bladen % (Auto) Eos % (Auto) Baso % (Auto) Neut # (Auto) Lymph # (Auto) Bladen # (Auto) Eos # (Auto) Baso # (Auto) Immature Gran # (Auto) Absolute Nucleated RBC Nucleated RBC % (auto) Neutrophils % (Manual) 17 Band Neutrophils % Lymphocytes % (Manual) 79 Prolymphocyte % Reactive Lymphs % (Man) Monocytes % (Manual) 2 Eosinophils % (Manual) 1 Basophils % (Manual) 1 Metamyelocytes % (Man) Myelocytes % (Man) Promyelocytes % (Man) Blast Cells % (Manual) Plasma Cell % (Manual) Other Cells % Nucleated RBC % Neutrophils # (Manual) 0.40 L Band Neutrophils # Total Absolute Neuts 0.40 L* Lymphocytes # (Manual) 1.86 Prolymphocyte # Reactive Lymphs # Total Abs Lymphocytes 1.86 Monocytes # (Manual) 0.05 L Eosinophils # (Manual) 0.02 Basophils # (Manual) 0.02 Metamyelocytes # (Man) Myelocytes # (Manual) Promyelocytes # (Man) Blast Cells # (Man) Plasma Cell # (Manual) Other Cells # Nucleated RBCs # (Man) Hypersegmented Neuts Hyposegmented Neuts Hypogranular Neuts Large Granular Lymphs # Lrg Granular Lymphs Hairy Cells Smudge Cells Toxic Granulation Toxic Vacuolation Dohle Bodies Eliu Rods Platelet Estimate Hypogranular Platelets Giant Platelets Platelet Satelliting RBC Morphology Polychromasia Hypochromasia Poikilocytosis Basophilic Stippling Anisocytosis Present Microcytosis Macrocytosis Present Spherocytes Pappenheimer Bodies Sickle Cells Target Cells 2+ Tear Drop Cells Ovalocytes Stomatocytes Jarrett-[place] Bodies Echinocytes Acanthocytes (Spur) Rouleaux RBC Agglutinates Schistocytes Sezary Cell PT Pending INR Pending VBG pH (7.36-7.41) VBG pCO2 (38-50) mmHg VBG pO2 mmHg VBG HCO3 mmol/L VBG O2 Saturation % VBG Base Excess mEq/L Sodium (136-145) mmol/L Potassium (3.5-5.1) mmol/L Chloride (98-107) mmol/L Carbon Dioxide (21-32) mmol/L Anion Gap (3-11) BUN (6-23) mg/dl Creatinine (0.6-1.2) mg/dl Est Cr Clr Drug Dosing ml/min Est GFR ( Amer) ml/min Est GFR (Non-Af Amer) ml/min BUN/Creatinine Ratio (10-20) Glucose (70-99(Fasting)) mg/dl Calcium (8.6-10.3) mg/dl Total Bilirubin (0.2-1.0) mg/dl AST (13-39) U/L ALT (7-52) U/L Alkaline Phosphatase (34-104) U/L Ammonia Pending C-Reactive Protein (0-0.5) mg/dl Total Protein (6.0-8.3) gm/dl Albumin (3.4-5.0) gm/dl Globulin (2.5-4.0) gm/dl Albumin/Globulin Ratio (0.9-2) Procalcitonin (0-0.5) ng/ml Fluid Neutrophils % % Fluid Lymphocytes % % Fluid Meso/Macro/Bladen % % Fluid Comment Peritoneal Color Peritoneal Appearance Peritoneal WBC (Auto) (0-300) /ul Peritoneal RBC (Auto) /uL Peritoneal Tot Protein gm/dl Peritoneal Albumin gm/dl Peritoneal LDH U/L Peritoneal Glucose mg/dl Peritoneal Amylase U/L Peritoneal Lipase U/L Blood Parasites ID 12/28/22 12/28/22 12/28/22 Range/Units 07:10 05:35 05:35 WBC RBC Hgb Hct MCV MCH MCHC RDW Std Deviation RDW Coeff of Moon Plt Count MPV Immature Gran % (Auto) Neut % (Auto) Lymph % (Auto) Bladen % (Auto) Eos % (Auto) Baso % (Auto) Neut # (Auto) Lymph # (Auto) Bladen # (Auto) Eos # (Auto) Baso # (Auto) Immature Gran # (Auto) Absolute Nucleated RBC Nucleated RBC % (auto) Neutrophils % (Manual) Band Neutrophils % Lymphocytes % (Manual) Prolymphocyte % Reactive Lymphs % (Man) Monocytes % (Manual) Eosinophils % (Manual) Basophils % (Manual) Metamyelocytes % (Man) Myelocytes % (Man) Promyelocytes % (Man) Blast Cells % (Manual) Plasma Cell % (Manual) Other Cells % Nucleated RBC % Neutrophils # (Manual) Band Neutrophils # Total Absolute Neuts Lymphocytes # (Manual) Prolymphocyte # Reactive Lymphs # Total Abs Lymphocytes Monocytes # (Manual) Eosinophils # (Manual) Basophils # (Manual) Metamyelocytes # (Man) Myelocytes # (Manual) Promyelocytes # (Man) Blast Cells # (Man) Plasma Cell # (Manual) Other Cells # Nucleated RBCs # (Man) Hypersegmented Neuts Hyposegmented Neuts Hypogranular Neuts Large Granular Lymphs # Lrg Granular Lymphs Hairy Cells Smudge Cells Toxic Granulation Toxic Vacuolation Dohle Bodies Eliu Rods Platelet Estimate Hypogranular Platelets Giant Platelets Platelet Satelliting RBC Morphology Polychromasia Hypochromasia Poikilocytosis Basophilic Stippling Anisocytosis Microcytosis Macrocytosis Spherocytes Pappenheimer Bodies Sickle Cells Target Cells Tear Drop Cells Ovalocytes Stomatocytes Jarrett-[place] Bodies Echinocytes Acanthocytes (Spur) Rouleaux RBC Agglutinates Schistocytes Sezary Cell PT INR VBG pH 7.37 (7.36-7.41) VBG pCO2 30 L (38-50) mmHg VBG pO2 41 mmHg VBG HCO3 17 mmol/L VBG O2 Saturation 65.1 % VBG Base Excess -6.7 mEq/L Sodium 138 (136-145) mmol/L Potassium 4.1 (3.5-5.1) mmol/L Chloride 103 (98-107) mmol/L Carbon Dioxide 17 L (21-32) mmol/L Anion Gap 18 H (3-11) BUN 64 H (6-23) mg/dl Creatinine 2.82 H (0.6-1.2) mg/dl Est Cr Clr Drug Dosing 19.1 ml/min Est GFR ( Amer) 19.4 ml/min Est GFR (Non-Af Amer) 16.7 ml/min BUN/Creatinine Ratio 22.7 H (10-20) Glucose 100 H (70-99(Fasting)) mg/dl Calcium 8.0 L (8.6-10.3) mg/dl Total Bilirubin 4.4 H (0.2-1.0) mg/dl AST 737 H (13-39) U/L ALT 119 H (7-52) U/L Alkaline Phosphatase 426 H (34-104) U/L Ammonia C-Reactive Protein 23.86 H (0-0.5) mg/dl Total Protein 4.5 L (6.0-8.3) gm/dl Albumin 1.9 L (3.4-5.0) gm/dl Globulin 2.6 (2.5-4.0) gm/dl Albumin/Globulin Ratio 0.7 L (0.9-2) Procalcitonin 6.16 H (0-0.5) ng/ml Fluid Neutrophils % % Fluid Lymphocytes % % Fluid Meso/Macro/Bladen % % Fluid Comment Peritoneal Color Peritoneal Appearance Peritoneal WBC (Auto) (0-300) /ul Peritoneal RBC (Auto) /uL Peritoneal Tot Protein gm/dl Peritoneal Albumin gm/dl Peritoneal LDH U/L Peritoneal Glucose mg/dl Peritoneal Amylase U/L Peritoneal Lipase U/L Blood Parasites ID 12/28/22 12/27/22 12/27/22 Range/Units 05:35 22:33 15:56 WBC Cancelled RBC Cancelled Hgb Cancelled Hct Cancelled MCV Cancelled MCH Cancelled MCHC Cancelled RDW Std Deviation Cancelled RDW Coeff of Moon Cancelled Plt Count Cancelled MPV Cancelled Immature Gran % (Auto) Cancelled Neut % (Auto) Cancelled Lymph % (Auto) Cancelled Bladen % (Auto) Cancelled Eos % (Auto) Cancelled Baso % (Auto) Cancelled Neut # (Auto) Cancelled Lymph # (Auto) Cancelled Bladen # (Auto) Cancelled Eos # (Auto) Cancelled Baso # (Auto) Cancelled Immature Gran # (Auto) Cancelled Absolute Nucleated RBC Cancelled Nucleated RBC % (auto) Cancelled Neutrophils % (Manual) Cancelled Band Neutrophils % Cancelled Lymphocytes % (Manual) Cancelled Prolymphocyte % Cancelled Reactive Lymphs % (Man) Cancelled Monocytes % (Manual) Cancelled Eosinophils % (Manual) Cancelled Basophils % (Manual) Cancelled Metamyelocytes % (Man) Cancelled Myelocytes % (Man) Cancelled Promyelocytes % (Man) Cancelled Blast Cells % (Manual) Cancelled Plasma Cell % (Manual) Cancelled Other Cells % Cancelled Nucleated RBC % Cancelled Neutrophils # (Manual) Cancelled Band Neutrophils # Cancelled Total Absolute Neuts Cancelled Lymphocytes # (Manual) Cancelled Prolymphocyte # Cancelled Reactive Lymphs # Cancelled Total Abs Lymphocytes Cancelled Monocytes # (Manual) Cancelled Eosinophils # (Manual) Cancelled Basophils # (Manual) Cancelled Metamyelocytes # (Man) Cancelled Myelocytes # (Manual) Cancelled Promyelocytes # (Man) Cancelled Blast Cells # (Man) Cancelled Plasma Cell # (Manual) Cancelled Other Cells # Cancelled Nucleated RBCs # (Man) Cancelled Hypersegmented Neuts Cancelled Hyposegmented Neuts Cancelled Hypogranular Neuts Cancelled Large Granular Lymphs Cancelled # Lrg Granular Lymphs Cancelled Hairy Cells Cancelled Smudge Cells Cancelled Toxic Granulation Cancelled Toxic Vacuolation Cancelled Dohle Bodies Cancelled Eliu Rods Cancelled Platelet Estimate Cancelled Hypogranular Platelets Cancelled Giant Platelets Cancelled Platelet Satelliting Cancelled RBC Morphology Cancelled Polychromasia Cancelled Hypochromasia Cancelled Poikilocytosis Cancelled Basophilic Stippling Cancelled Anisocytosis Cancelled Microcytosis Cancelled Macrocytosis Cancelled Spherocytes Cancelled Pappenheimer Bodies Cancelled Sickle Cells Cancelled Target Cells Cancelled Tear Drop Cells Cancelled Ovalocytes Cancelled Stomatocytes Cancelled Jarrett-[place] Bodies Cancelled Echinocytes Cancelled Acanthocytes (Spur) Cancelled Rouleaux Cancelled RBC Agglutinates Cancelled Schistocytes Cancelled Sezary Cell Cancelled PT INR VBG pH (7.36-7.41) VBG pCO2 (38-50) mmHg VBG pO2 mmHg VBG HCO3 mmol/L VBG O2 Saturation % VBG Base Excess mEq/L Sodium 138 137 (136-145) mmol/L Potassium 4.1 4.7 D (3.5-5.1) mmol/L Chloride 105 107 (98-107) mmol/L Carbon Dioxide 16 L 13 L (21-32) mmol/L Anion Gap 17 H 17 H (3-11) BUN 66 H 68 H (6-23) mg/dl Creatinine 2.77 H 2.84 H (0.6-1.2) mg/dl Est Cr Clr Drug Dosing 19.4 18.9 ml/min Est GFR ( Amer) 19.8 19.2 ml/min Est GFR (Non-Af Amer) 17.1 16.6 ml/min BUN/Creatinine Ratio 23.8 H 23.9 H (10-20) Glucose 133 H 151 H (70-99(Fasting)) mg/dl Calcium 7.4 L 7.7 L (8.6-10.3) mg/dl Total Bilirubin (0.2-1.0) mg/dl AST (13-39) U/L ALT (7-52) U/L Alkaline Phosphatase (34-104) U/L Ammonia C-Reactive Protein (0-0.5) mg/dl Total Protein (6.0-8.3) gm/dl Albumin (3.4-5.0) gm/dl Globulin (2.5-4.0) gm/dl Albumin/Globulin Ratio (0.9-2) Procalcitonin (0-0.5) ng/ml Fluid Neutrophils % % Fluid Lymphocytes % % Fluid Meso/Macro/Bladen % % Fluid Comment Peritoneal Color Peritoneal Appearance Peritoneal WBC (Auto) (0-300) /ul Peritoneal RBC (Auto) /uL Peritoneal Tot Protein gm/dl Peritoneal Albumin gm/dl Peritoneal LDH U/L Peritoneal Glucose mg/dl Peritoneal Amylase U/L Peritoneal Lipase U/L Blood Parasites ID Cancelled 12/27/22 12/27/22 Range/Units 14:00 13:49 WBC RBC Hgb Hct MCV MCH MCHC RDW Std Deviation RDW Coeff of Moon Plt Count MPV Immature Gran % (Auto) Neut % (Auto) Lymph % (Auto) Bladen % (Auto) Eos % (Auto) Baso % (Auto) Neut # (Auto) Lymph # (Auto) Bladen # (Auto) Eos # (Auto) Baso # (Auto) Immature Gran # (Auto) Absolute Nucleated RBC Nucleated RBC % (auto) Neutrophils % (Manual) Band Neutrophils % Lymphocytes % (Manual) Prolymphocyte % Reactive Lymphs % (Man) Monocytes % (Manual) Eosinophils % (Manual) Basophils % (Manual) Metamyelocytes % (Man) Myelocytes % (Man) Promyelocytes % (Man) Blast Cells % (Manual) Plasma Cell % (Manual) Other Cells % Nucleated RBC % Neutrophils # (Manual) Band Neutrophils # Total Absolute Neuts Lymphocytes # (Manual) Prolymphocyte # Reactive Lymphs # Total Abs Lymphocytes Monocytes # (Manual) Eosinophils # (Manual) Basophils # (Manual) Metamyelocytes # (Man) Myelocytes # (Manual) Promyelocytes # (Man) Blast Cells # (Man) Plasma Cell # (Manual) Other Cells # Nucleated RBCs # (Man) Hypersegmented Neuts Hyposegmented Neuts Hypogranular Neuts Large Granular Lymphs # Lrg Granular Lymphs Hairy Cells Smudge Cells Toxic Granulation Toxic Vacuolation Dohle Bodies Eliu Rods Platelet Estimate Hypogranular Platelets Giant Platelets Platelet Satelliting RBC Morphology Polychromasia Hypochromasia Poikilocytosis Basophilic Stippling Anisocytosis Microcytosis Macrocytosis Spherocytes Pappenheimer Bodies Sickle Cells Target Cells Tear Drop Cells Ovalocytes Stomatocytes Jarrett-[place] Bodies Echinocytes Acanthocytes (Spur) Rouleaux RBC Agglutinates Schistocytes Sezary Cell PT INR VBG pH (7.36-7.41) VBG pCO2 (38-50) mmHg VBG pO2 mmHg VBG HCO3 mmol/L VBG O2 Saturation % VBG Base Excess mEq/L Sodium (136-145) mmol/L Potassium (3.5-5.1) mmol/L Chloride (98-107) mmol/L Carbon Dioxide (21-32) mmol/L Anion Gap (3-11) BUN (6-23) mg/dl Creatinine (0.6-1.2) mg/dl Est Cr Clr Drug Dosing ml/min Est GFR ( Amer) ml/min Est GFR (Non-Af Amer) ml/min BUN/Creatinine Ratio (10-20) Glucose (70-99(Fasting)) mg/dl Calcium (8.6-10.3) mg/dl Total Bilirubin (0.2-1.0) mg/dl AST (13-39) U/L ALT (7-52) U/L Alkaline Phosphatase (34-104) U/L Ammonia C-Reactive Protein (0-0.5) mg/dl Total Protein (6.0-8.3) gm/dl Albumin (3.4-5.0) gm/dl Globulin (2.5-4.0) gm/dl Albumin/Globulin Ratio (0.9-2) Procalcitonin (0-0.5) ng/ml Fluid Neutrophils % 7 % Fluid Lymphocytes % 13 % Fluid Meso/Macro/Bladen % 80 % Fluid Comment Peritoneal Color Yellow Peritoneal Appearance Hazy Peritoneal WBC (Auto) 26 (0-300) /ul Peritoneal RBC (Auto) < 2000 /uL Peritoneal Tot Protein < 3.0 gm/dl Peritoneal Albumin < 1.5 gm/dl Peritoneal LDH 101 U/L Peritoneal Glucose 137 mg/dl Peritoneal Amylase 15 U/L Peritoneal Lipase 65 U/L Blood Parasites ID Microbiology 12/26/22 15:42 Urine Culture - Final Urine,Clean Catch Three types of organisms present, all high counts. Repeat collection recommended. No further identifications or sensitivities to follow. 12/27/22 13:49 Gram Stain - Final Peritoneal Fluid 12/26/22 13:35 Aerobic Blood Culture - Preliminary Blood No growth in Aerobic bottle after 24 hours. Anaerobic Blood Culture - Preliminary No growth in Anaerobic bottle after 24 hours. 12/26/22 13:35 Aerobic Blood Culture - Preliminary Blood No growth in Aerobic bottle after 24 hours. Anaerobic Blood Culture - Preliminary No growth in Anaerobic bottle after 24 hours. Diagnostic Findings Ultrasound-guided paracentesis INDICATION: Ascites PROCEDURE: Procedure and risks were explained. Informed consent obtained. A final timeout was completed. A pocket of ascites was identified in the right upper quadrant. The abdomen was prepped and draped in sterile fashion. 1% buffered lidocaine was utilized for skin anesthesia. Utilizing ultrasound guidance, a 5 Upper Sorbian safety centesis catheter was advanced into the pocket of ascites. Ultrasound images were obtained. A total of 2.3 L of cloudy yellow ascites fluid was removed, with 1 L sent to the lab for analysis. The catheter was removed and Band-Aid applied. The patient tolerated the procedure well. Vital signs will be monitored post procedure. IMPRESSION: Ultrasound-guided paracentesis as above. Performed, dictated, and signed by Shant Goldman PA-C; to be co-signed by Dr. Flako Bruner. (3) Ascites Ascites type: malignant Qualified Code(s): R18.0 - Malignant ascites (5) Neutropenia Neutropenia type: unspecified Qualified Code(s): D70.9 - Neutropenia, unspecified (6) Abdominal pain Abdominal location: generalized Qualified Code(s): R10.84 - Generalized abdominal pain
[2022-12-28 12:04] LABS: INR 1.6 (0.9-1.1)
[2022-12-28] MEDS: SODIUM BICARBONATE 8.4% 75 MEQ in SODIUM CHLORIDE 0.45 % 1,000 ML IV SCH ×2 (12:10→22:22)
[2022-12-28] MEDS: HYDROmorphone INJ 0.5 MG/0.5 ML SYR IV PRN ×2 (12:10→18:41)
--- NOTE | 2022-12-28 15:35 | Hematology/Oncology Prog Note ---
Date of Service December 28, 2022 Assessment & Plan (1) Breast cancer metastasized to liver: (2) Abnormal LFTs: (3) Acute dehydration: (4) MARISA (acute kidney injury): (5) Neutropenia: Plan Still remains very lethargic. Labs however show improvement in WBC and ANC. Continue with filgrastim x2 more days. Admission and Anticipated Discharge Date Admission Date: December 26, 2022 Subjective No acute events. She remains lethargic. Labs remain overall stable with slight improvement in renal function Results & Data Vital Signs (Past 12 Hours) Vital Signs Temp Pulse Pulse Resp BP Pulse Ox O2 Del Method 12/28/22 11:00 36.8 C 68 18 124/61 94 Room Air 12/28/22 08:00 Room Air 12/28/22 08:00 102 H 12/28/22 08:32 36.6 C 111 H 18 104/63 96 Room Air (5) Neutropenia Neutropenia type: unspecified Qualified Code(s): D70.9 - Neutropenia, unspecified
[2022-12-28] MEDS: ZOLPIDEM TARTRATE 5 MG TAB PO SCH (20:06)
[2022-12-29] MEDS: HYDROmorphone INJ 0.5 MG/0.5 ML SYR IV PRN (02:29)
[2022-12-29] MEDS ORDERED: DEXTROSE 50% 50 ML SYRINGE IV ONE (04:10)
[2022-12-29 04:35] LABS: Base Excess VBG -15.6 mEq/L; HCO3 VBG 11 mmol/L; Oxygen Saturation VBG < 60.0 %; PCO2 VBG 28 mmHg (38-50); PO2 VBG 33 mmHg
[2022-12-29] MEDS ORDERED: DEXTROSE 50% 50 ML SYRINGE IV PRN (04:46)
[2022-12-29] MEDS ORDERED: SODIUM CHLORIDE 0.9% 1000ML 1,000 ML IV ONE (04:46)
[2022-12-29 05:00] LABS: Albumin Globulin Ratio 0.7 (0.9-2); Albumin Level 1.6 gm/dl (3.4-5.0); BUN Creatinine Ratio 18.7 (10-20); Bilirubin,Total 4.1 mg/dl (0.2-1.0); Calcium 7.6 mg/dl (8.6-10.3); Creatinine Clr Calc Pharmacy 14.6 ml/min; Est GFR (Non-African American) 12.1 ml/min; Globulin 2.3 gm/dl (2.5-4.0); Potassium 5.4 mmol/L (3.5-5.1); Total Protein 3.9 gm/dl (6.0-8.3)
[2022-12-29 05:03] LABS: Hematocrit (blood only) 24.1 % (37.0-47.0); Hemoglobin 8.7 g/dl (12.0-16.0); Mean Corpuscular Hemoglobin 30.1 pg (25.0-34.0); Mean Corpuscular Hgb Conc 36.1 g/dL (32.0-36.0); Mean Corpuscular Volume 83.4 fL (80.0-100.0); Mean Platelet Volume 9.4 fL (9.4-12.4); Nucleated RBC # (auto) 0.05 K/uL (0-0.12); Platelet Count 50 K/uL (130-400); RDW Coefficient of Variation 22.6 % (11.5-14.5); Red Blood Count 2.89 M/uL (4.20-5.40)
[2022-12-29 05:06] LABS: Prothrombin Time 21.4 Seconds (9.0-12.0)
[2022-12-29] MEDS ORDERED: LORazepam 0.5 MG TAB PO PRN (05:12)
[2022-12-29] MEDS ORDERED: LORazepam 2 MG/1 ML VIAL IV PRN (05:12)
[2022-12-29] MEDS ORDERED: GLYCOPYRROLATE 0.2 MG/ML VIAL IV PRN (05:12)
[2022-12-29] MEDS ORDERED: ONDANSETRON 4 MG OD TAB SL PRN (05:12)
--- NOTE | 2022-12-29 05:23 | Communication Note ---
Date of Service: December 29, 2022 3:46 received notice patient declining quickly blood pressure 65/40 unable to obtain pulse ox, previously opened eyes to name and moaned in pain at this time only occasionally opens eyes to name, legs mottled, all extremities cold, noted agonal breathing. BSG POC was <10. Ordered 1L NSS and D50 50ml. Blood pressure improved to 95/56 shortly after started declining again, blood sugar POC unchanged. Ordered cbc cmp lactate pt/inr. Noted lactate >17 sharply increased from yesterday. Informed family of patient's decline in condition, daughter in law made aware, came to hospital. Informed , son, and daughter in law of patient's declining condition and likely end of life given her terminal cancer, briefly discussed comfort measures including treatment for pain, anxiety, and air hunger, family agrees to following measures understands patient's end of life is growing near. Comfort measures ordered, future labs discontinued.
[2022-12-29 06:00] LABS: Basophils # (auto) 0.04 K/uL (0-0.2); Basophils % (auto) 0.8 %; Echinocytes 2+; Immature Granulocytes # (auto) 0.03 K/uL (0.01-0.20); Immature Granulocytes % (auto) 0.6 %; Lymphocytes # (auto) 0.77 K/uL (1.2-3.4); Lymphocytes % (auto) 15.4 %; Macrocytosis Present; Monocytes # (auto) 0.09 K/uL (0.11-0.59); Monocytes % (auto) 1.8 %; Neutrophils # (auto) 4.07 K/uL (1.40-6.50); Neutrophils % (auto) 81.4 %; Target Cells 2+; Toxic Granulation 1+; Toxic Vacuolation 2+
[2022-12-29] MEDS ORDERED: HYDROmorphone INJ 1 MG/ML SYRINGE IV STA (07:44)
[2022-12-29] MEDS ORDERED: HYDROmorphone INJ 0.5 MG/0.5 ML SYR IV PRN (07:44)
[2022-12-29] MEDS ORDERED: HYDROmorphone INJ 1 MG/ML SYRINGE ONE (07:47)
[2022-12-29] MEDS ORDERED: HYDROmorphone BOLUS from BAG IV PRN (07:56)
[2022-12-29] MEDS ORDERED: HYDROmorphone/NSS 100 MG/100 ML BAG IV SCH (08:00)
--- NOTE | 2022-12-29 13:45 | Discharge Summary ---
Date of Service December 29, 2022 Admission HPI Per Admitting Provider Ms. Barrientos is a 67 yo female with significant PMH that includes: stage IV right breast cancer She recently started chemotherapy in November of 2022 and received gemcitabine/carboplatin The patient arrived in [place] with altered mental status weakness and poor oral intake for the past few week. The patient is very lethargic at the time of the interview. Consult placed to hospitalist service for patient to be admitted to the hospital. Principal Diagnosis pt at 1304 hours on 12/29/22 secondary to complications of metastatic breast cancer Discharge Exam examined to be pulseless and without spontaneous respirations pronounced by Oralia Cortez MD Discharge Data Allergies Allergy/AdvReac Type Severity Reaction Status Date / Time acetaminophen Allergy Intermediate Hives Verified 12/26/22 16:35 sertraline Allergy Intermediate groggy Verified 12/26/22 16:35 Consultations 12/26/22 15:42 ED Decision to Admit Stat 12/27/22 09:00 Consult Nephrology Routine 12/27/22 11:09 Consult General Surgery Routine 12/27/22 13:06 Consult Palliative Care Routine 12/28/22 08:56 Consult Oncology Routine Ordered Studies 12/26/22 13:37 CT abd pelvis wo con Stat CT head/brain wo con Stat 12/27/22 11:15 US venous doppler LE BI Routine 12/27/22 13:33 IR paracentesis abd w/img US Urgent Hospital Course (1) : Patient rapidly declined overnight with transition to comfort care by family initiated on pain control developed Kyle-Lane breathing and respiratory distress initiated on Dilaudid drip patient peacefully in the company of her family at 1304 hrs. on 12/29/2022 from complications of metastatic breast cancer The remainder notations are from her care during her hospital stay (2) Neutropenia: 67 yo female with neutropenia and lactic acidosis in the setting of dehydration with past medical history of stage 4 breast cancer Concern over SBO seen on CT abdomen on admission , kub supports parital SBO. empiric antibiotics Zosyn, discussion of TPN by surgery but not treating underlying issue of metastatic breast cancer given neupogen starting 12/26/22, Nephro brought up the concern that patient may have pulmonary emboli, however her clinical deterioration either from neutropenia, provoking possible sepsis, to her MARISA and dehydration could also be provoking her tachycardia. Wells criteria could be considered moderate to unlikely. Ordered lower extremity doppler, this was negative for DVT. D-dimer in this case will hold no value if positive given her clinical situation given degree of inflammation from other medical issues . (3) Breast cancer metastasized to liver: stage 4 breast cancer to liver. overall poor prognosis, consulted palliative care, Code status switched to DNR/DNR pain from mets and partal sbo, possible SBP, paracentesis of 2.3 L bloody fluid . INR is elevated transaminitis, likely from metastatic disease (4) MARISA (acute kidney injury): Acute kidney failure on CKD stage 3 creatinine increased no hydro seen on CT to consider extrinsic compression Patient with acute anion gap metabolic acidosis with respiratory compensation. (5) Goals of care, counseling/discussion: Total Time Total Time Spent Total Time Spent (In Minutes): It required greater than 30 minutes to prepare this patient for discharge Discharge Plan Discharge Items Patient Disposition: Discharge Diagnosis: metastatic breast cancer Other Date/Time: 12/29/22 13:04 Coding Level of Care Code 26239 INP/OBS DISCH >30 MIN Diagnoses R99 Neutropenia D70.9 Neutropenia type: unspecified Breast cancer metastasized to liver C50.919; C78.7 MARISA (acute kidney injury) N17.9 Goals of care, counseling/discussion Z71.89
== END 2022-12-29 13:04 | disposition expired | DRG 808 ==
LOC: ED 13:04 → SUATTDRO 15:58 → 2S 15:58